=== PATIENT | male | born 1960 | race Caucasian/White ===

== ENCOUNTER 2022-01-22 16:44 | Outpatient (CLI) | payer MEDICAID | END 2022-01-22 16:45 | disposition left against medical advice (07) | LOC: EMS 16:44 | DX: E11.649 Type 2 diabetes mellitus with hypoglycemia without coma (principal) ==

== ENCOUNTER 2022-02-02 19:20 | Outpatient (CLI) | payer MEDICAID | END 2022-02-02 19:21 | disposition EMS.NT | LOC: EMS 19:20 | DX: E11.649 Type 2 diabetes mellitus with hypoglycemia without coma (principal); Z79.4 Long term (current) use of insulin ==

== ENCOUNTER 2022-02-06 18:48 | Outpatient (CLI) | payer MEDICAID | END 2022-02-06 18:49 | disposition critical access hospital (66) | LOC: EMS 18:48 | DX: M79.652 Pain in left thigh (principal); W11.XXXA Fall on and from ladder, initial encounter; Y92.009 Unspecified place in unspecified non-institutional (private) residence as the place of occurrence of the external cause | CPT/HCPCS: A0425; A0427 ==

== ENCOUNTER 2022-02-06 19:17 | Inpatient (IN) | payer MEDICAID ==
[2022-02-06] MEDS ORDERED: HYDROmorphone 1 MG/ML CARPUJECT IVP STA ×2 (19:41→22:09)
[2022-02-06 19:57] LABS: BASOPHILS # (AUTO) 0.1 10^3/uL (0.0-0.1); BASOPHILS % (AUTO) 1.3 %; EOSINOPHILS # (AUTO) 0.1 10^3/uL (0.0-0.7); EOSINOPHILS % (AUTO) 1.7 %; HCT - HEMATOCRIT 41.5 % (42.0-52.0); HGB - HEMOGLOBIN 13.9 g/dL (14.0-18.0); LYMPHOCYTES # (AUTO) 1.9 10^3/uL (1.5-3.5); LYMPHOCYTES % (AUTO) 23.9 %; MEAN CORPUSCULAR HEMOGLOBIN 31.4 pg (27.0-31.0); MEAN CORPUSCULAR HGB CONC 33.5 g/dL (32.0-36.0); MEAN CORPUSCULAR VOLUME 93.9 fL (80.0-94.0); MONOCYTES # (AUTO) 0.5 10^3/uL (0.0-1.0); MONOCYTES % (AUTO) 5.9 %; NEUTROPHILS # (AUTO) 5.3 10^3/uL (1.5-6.6); NEUTROPHILS % (AUTO) 66.9 %; PLT - PLATELET COUNT 270 10^3/uL (130-450); RED BLOOD COUNT 4.42 10^6/uL (4.70-6.10); RED CELL DISTRIBUTION WIDTH 13.6 % (12.0-15.0); WHITE BLOOD COUNT 7.8 x10^3/uL (4.8-10.8)
[2022-02-06 20:08] LABS: CALCIUM 9.4 mg/dL (8.5-10.3); CREATININE 0.9 mg/dL (0.6-1.2); POTASSIUM 4.3 mmol/L (3.5-5.0)
--- NOTE | 2022-02-06 20:57 | XRAY Report ---
PROCEDURE: Hip w/Pelvis 2-3V LT INDICATIONS: fall off ladder, L hip pain TECHNIQUE: AP pelvis with AP and lateral views of the left hip. COMPARISON: None. FINDINGS: Bones: There is deformity of the proximal left femur consistent with sequelae of a mildly displaced a nd angle related intertrochanteric fracture. Pelvic ring appears intact. No suspicious bony lesions. Soft tissues: The visualized bowel gas pattern is normal. No suspicious soft tissue calcifications. IMPRESSION: 1. Mildly displaced and angulated intertrochanteric fracture of the proximal left femur. Reviewed by: Connor Mejia MD on 02/06/2022 8:56 PM PDT Approved by: Connor Mejia MD on 02/06/2022 8:56 PM PDT Station ID: [id number]
--- NOTE | 2022-02-06 21:04 | ED Physician Documentation ---
History of Present Illness - Stated complaint Stated Complaint: FELL OFF LADDER - Chief complaint Chief Complaint: General - History obtained from History obtained from: Patient, EMS - History of Present Illness Timing: Today Pain level max: 9 Pain level now: 7 - Additonal information Additional information: Patient is a 61-year-old male, history of insulin dependent diabetes who presents to the emergency department after a fall off of a trailer tonight. He was on a ladder and fell about 5 feet onto the left hip. He states he was able to hobble on crutches, but pain increased with weightbearing. Patient was brought in by ambulance. No head, neck, back pain. No numbness or tingling. Worse with movement, better with rest. Is not on any blood thinners. Review of Systems Ten Systems: 10 systems reviewed and negative Constitutional: denies: Fever, Chills Throat: denies: Sore throat Cardiac: denies: Chest pain / pressure, Palpitations Respiratory: denies: Dyspnea, Cough GI: denies: Abdominal Pain, Vomiting, Diarrhea Skin: denies: Rash Musculoskeletal: denies: Neck pain, Back pain Neurologic: denies: Focal weakness, Numbness, Confused, Headache, Head injury, LOC PD PAST MEDICAL HISTORY - Past Medical History Past Medical History: Yes Endocrine/Autoimmune: Type 1 diabetes - Present Medications Home Medications: Ambulatory Orders Medication Instructions Recorded Confirmed Aspirin [[place] Aspirin] 81 mg PO DAILY 02/06/22 02/06/22 Insulin NPH Human [HumuLIN N] 15 unit SUBQ BID 02/06/22 02/06/22 Insulin Regular Human [Humulin R] 0 unit SUBQ ACHS 02/06/22 02/06/22 - Allergies Allergies/Adverse Reactions: Allergies Allergy/AdvReac Type Severity Reaction Status Date / Time No Known Drug Allergies Allergy Verified 02/06/22 19:29 - Living Situation Living Arrangement: reports: At home - Family History Family history: reports: Non contributory PD ED PE NORMAL - Vitals Vital signs reviewed: Yes - General General: Alert and oriented X 3, No acute distress - HEENT HEENT: Atraumatic, PERRL, EOMI, Moist mucous membranes, Pharynx benign - Neck Neck: Supple, no meningeal sign, No bony TTP, C-Spine cleared by NEXUS criteria - Cardiac Cardiac: RRR, Strong equal pulses - Respiratory Respiratory: No respiratory distress, Clear bilaterally - Abdomen Abdomen: Soft, Non tender, Non distended - Derm Derm: Warm and dry - Extremities Extremities: No deformity, Other (Pain with range of motion of the left hip. No gross deformity. No external rotation or shortening. Neurovascular intact. Small abrasion to the left hip.) - Neuro Neuro: Alert and oriented X 3, shooter's helper 2-12 intact, No motor deficit, No sensory deficit, Normal speech Eye Opening: Spontaneous Motor: Obeys Commands Verbal: Oriented GCS Score: 15 - Psych Psych: Normal mood, Normal affect Results - Vitals Vitals: Vital Signs - 24 hr 02/06/22 02/06/22 02/06/22 19:23 20:05 21:00 Temperature 37 C Heart Rate 80 78 75 Respiratory 18 14 16 Rate Blood Pressure 159/79 H 135/60 H 122/60 O2 Saturation 100 91 L 94 Oxygen O2 Source Room air - EKG (time done) 2145 Rate: Rate (enter#) (72) Rhythm: NSR [place]: Normal Intervals: Normal NE QRS: Normal Ischemia: Non specific changes - Labs Labs: Laboratory Tests 02/06/22 02/06/22 19:49 19:49 WBC 7.8 RBC 4.42 L Hgb 13.9 L Hct 41.5 L MCV 93.9 MCH 31.4 H MCHC 33.5 RDW 13.6 Plt Count 270 MPV 9.0 Neut # (Auto) 5.3 Lymph # (Auto) 1.9 [place] # (Auto) 0.5 Eos # (Auto) 0.1 Baso # (Auto) 0.1 Absolute Nucleated RBC 0.00 Nucleated RBC % 0.0 Sodium 133 L Potassium 4.3 Chloride 100 L Carbon Dioxide 26 Anion Gap 7.0 BUN 17 Creatinine 0.9 Estimated GFR (MDRD) 86 L Glucose 130 H Calcium 9.4 - Rads (name of study) X-ray left hip Radiology: Final report received, EMP read contemporaneously, See rad report (Mildly displaced intertrochanteric fracture) PD MEDICAL DECISION MAKING - ED course Complexity details: reviewed results, re-evaluated patient, considered differential, d/w patient, d/w senior information security consultant ED course: Patient is a 61-year-old male, history of diabetes who presents to the emergency department after a fall off of a ladder today. He has a fracture of the left hip. Discussed the case with Dr. Patricia, orthopedics, who recommends admission to the hospitalist service. He will consult in the morning. Discussed the case with the hospitalist as well. They accept for admission. This document was made in part using voice recognition software. While efforts are made to proofread this document, sound alike and grammatical errors may occur. Departure - Departure Disposition: 66 [facility] DC/Xfer Clinical Impression: IDDM (insulin dependent diabetes mellitus) Intertrochanteric fracture of left hip Qualifiers: Encounter type: initial encounter Fracture type: closed Fracture alignment: displaced Qualified Code(s): S72.142A - Displaced intertrochanteric fracture of left femur, initial encounter for closed fracture Condition: Good
[2022-02-06] MEDS ORDERED: SODIUM CHLORIDE 0.9% 1,000 ML IV STA (21:13)
--- NOTE | 2022-02-06 21:23 | HISTORY & PHYSICAL EXAMINATION ---
Chief Complaint - Chief Complaint Chief Complaint: Mecahnical Fall with left hip pain History of Present Illness - Admitted From Admitted From:: ER - History Obtained From History obtained from: Patient and ER physicain - History of Present Illness HPI Comment/Other: Patient is a 61-year-old male, history of insulin dependent diabetes who presents to the emergency department after a fall off of a trailer tonight. He was on a ladder and fell about 5 feet onto the left hip. He states he was able to hobble on crutches, but pain increased with weightbearing. Patient was brought in by ambulance. No head, neck, back pain. No numbness or tingling. Worse with movement, better with rest. Is not on any blood thinners. Patient denies any loss of consiousness, has hx of DM, no other active complaints. 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 All of the history done History - Past Medical History Endocrine/Autoimmune: reports: Type 1 diabetes - Family & Social History Living arrangement: At home Meds/Allgy - Home Medications Home Medications: Ambulatory Orders Medication Instructions Recorded Confirmed Aspirin [[place] Aspirin] 81 mg PO DAILY 02/06/22 02/06/22 Insulin NPH Human [HumuLIN N] 15 unit SUBQ BID 02/06/22 02/06/22 Insulin Regular Human [Humulin R] 0 unit SUBQ ACHS 02/06/22 02/06/22 - Allergies Allergies/Adverse Reactions: Allergies Allergy/AdvReac Type Severity Reaction Status Date / Time No Known Drug Allergies Allergy Verified 02/06/22 19:29 Review of Systems - Musculoskeletal Musculoskeletal: reports: Limited range of motion, Joint pain (Left hip pain) Prior Level of Functionality: Good ADL Exam - Vital Signs Vital Signs: Vital Signs x48h Temp Pulse Resp BP Pulse Ox 02/06/22 21:00 75 16 122/60 94 02/06/22 20:05 78 14 135/60 H 91 L 02/06/22 19:23 37 C 80 18 159/79 H 100 - Physical Exam General Appearance: positive: No acute distress Eyes Bilateral: positive: Normal inspection, PERRL Neck: positive: Nml inspection, No JVD Respiratory: positive: Chest non-tender, No respiratory distress Cardiovascular: positive: Regular rate & rhythm Abdomen: positive: Non-tender Skin: positive: Color nml Extremities: positive: Other (Extremities: No deformity, Other (Pain with range of motion of the left hip. No gross deformity. No external rotation or s hortening. Neurovascular intact. Small abrasion to the left hip.)) Neurologic/Psychiatric: positive: Oriented x3, CN's nml (2-12) Conclusion/Plan - Problem List (1) Intertrochanteric fracture of left hip Conclusion/Plan: Patient is a 61-year-old male, history of diabetes who presents to the emergency department after a fall off of a ladder today. He has a fracture of the left hip. Discussed the case with Dr. Patricia, orthopedics, who recommends admission to the hospitalist service. He will consult in the morning. Patient will be admitted to Med surg, EKG ordered, NPO past midnight, gentle iv hydration, pain meds, incentive spirometer Patient is at moderate risk for a moderate risk procedure and is medically optimized for his surgery will need PT post op. Qualifiers: Encounter type: initial encounter Fracture type: closed Fracture alignment: displaced Qualified Code(s): S72.142A - Displaced intertrochanteric fracture of left femur, initial encounter for closed fracture (2) IDDM (insulin dependent diabetes mellitus) Conclusion/Plan: Accuchekcs, hold insulin, regular sliding scale coverage, check lipids and tsh Lipitor 20 mg qhs check A1c - Lab Results Fish Bones: 02/06/22 19:49 02/06/22 19:49
[2022-02-06] MEDS ORDERED: SODIUM CHLORIDE FLUSH 0.9% 10 ML SYRINGE IVP PRN (21:33)
[2022-02-06] MEDS ORDERED: ONDANSETRON 4 MG/2 ML VIAL IVP PRN (21:33)
[2022-02-06] MEDS ORDERED: ATORVASTATIN 40 MG TABLET PO ONE (22:08)
[2022-02-06 22:09] LABS: B. PARAPERTUSSIS- RESP PCR PAN NOT DETECTED; B. PERTUSSIS- RESP PCR PANEL NOT DETECTED; C. PNEUMONIAE- RESP PCR PANEL NOT DETECTED; CORONAVIRUS 229E-RESP PCR NOT DETECTED; CORONAVIRUS HKU1-RESP PCR NOT DETECTED; CORONAVIRUS NL63-RESP PCR NOT DETECTED; CORONAVIRUS OC43-RESP PCR NOT DETECTED; HUMAN METAPNEUMOVIRUS NOT DETECTED; INFLUENZA A- RESP PCR PANEL NOT DETECTED; INFLUENZA B - RESP PCR PANEL NOT DETECTED; M. PNEUMONIAE- RESP PCR PANEL NOT DETECTED; PARAINFLUENZA VIRUS 1 NOT DETECTED; PARAINFLUENZA VIRUS 2 NOT DETECTED; PARAINFLUENZA VIRUS 3 NOT DETECTED; PARAINFLUENZA VIRUS 4 NOT DETECTED; RHINOVIRUS/ENTEROVIRUS NOT DETECTED; RSV- RESP PCR PANEL NOT DETECTED; SARS-CoV-2 -RESP PCR PANEL NOT DETECTED
[2022-02-06] MEDS: SODIUM CHLORIDE 0.9% 1,000 ML IV SCH (22:33)
--- NOTE | 2022-02-06 22:50 | ED Physician Documentation ---
ED Addendum - Addendum Addendum: 02/06/22 22:49 Dr. Patricia (ortho) returned phone call and will consult on patient.
--- NOTE | 2022-02-06 22:56 | XRAY Report ---
PROCEDURE: Chest 1 View X-Ray INDICATIONS: pre-op TECHNIQUE: One view of the chest was acquired. COMPARISON: None. FINDINGS: Surgical changes and devices: There are postsurgical changes in the mediastinum with multiple median sternotomy wires. Lungs and pleura: There is hyperinflation of the lungs with flattening of hemidiaphragms compatible COPD. No acute consolidation. No pleural effusions or pneumothorax. Mediastinum: Mediastinal contours appear normal. Heart size is normal. Bones and chest wall: No suspicious bony lesions. Overlying soft tissues appear unremarkable. IMPRESSION: 1. No definite acute cardiopulmonary disease. 2. Findings compatible with COPD. Reviewed by: Connor Mejia MD on 02/06/2022 10:55 PM PDT Approved by: Connor Mejia MD on 02/06/2022 10:55 PM PDT Station ID: [id number]
[2022-02-06] MEDS: MORPHINE 2 MG/ML CARPUJECT IVP PRN (23:07)
[2022-02-07] MEDS: ACETAMINOPHEN 325 MG TABLET PO PRN ×3 (00:03→23:43)
[2022-02-07] MEDS: SODIUM CHLORIDE FLUSH 0.9% 10 ML SYRINGE IVP SCH ×4 (00:05→22:41)
[2022-02-07] MEDS: MORPHINE 2 MG/ML CARPUJECT IVP PRN ×4 (01:08→21:52)
[2022-02-07] MEDS: oxyCODONE 5 MG TABLET PO PRN ×3 (03:28→23:44)
[2022-02-07 06:36] LABS: CHOL/HDL RATIO 2.7 (<5.0); CHOLESTEROL 164 mg/dL; HDL CHOLESTEROL 61 mg/dL; LDL CHOLESTEROL,CALCULATED 90 mg/dL; LDL/HDL RATIO 1.5 (<3.6); TRIGLYCERIDES 65 mg/dL; VLDL CHOLESTEROL 13 mg/dL
[2022-02-07] MEDS: SODIUM CHLORIDE 0.9% 1,000 ML IV SCH ×3 (07:09→20:57)
--- NOTE | 2022-02-07 07:56 | PROVIDER PROGRESS NOTE ---
Assessment/Plan - Problem List (1) Intertrochanteric fracture of left hip Qualifiers: Encounter type: subsequent encounter Fracture type: closed Fracture alignment: displaced Qualified Code(s): S72.142A - Displaced intertrochanteric fracture of left femur, initial encounter for closed fracture Assessment/Plan: He was seen by Ortho this am and hip surgery could be done this afternoon Continue npo for surgey and iv fluids Continue iv narcotic meds for pain prn (2) Preoperative clearance Assessment/Plan: The revised cardiac risk index for preoperative risk was done for this patient. He has a Class III risk (for Hx of DM and CAD), which gives him a 10.1% 30-day risk of , AZ or cardiac arrest. This was discussed with the patient. This was discussed with the orthopedic surgeon and staff An echocardiogram has been ordered for preop evaluation given the abnormal EKG (3) Abnormal EKG Assessment/Plan: Inferior Q waves are seen on his EKG, therefore I asked about his cardiac Hx and whether there was an AZ. He said that "they thought he had an AZ, but after the CABG said no" An Echo was done today pre-op, and no inferior wall motion abnormality was seen. This suggests that he probably did have an AZ but that the inferior wall was reperfused with blood flow restored via a CABG. He has no sx of chest pain since the CABG. Therefore the likelihood that he still has well perfused myocardium is good. (4) IDDM (insulin dependent diabetes mellitus) Assessment/Plan: His Insulin and fingerstick checks and ss coverage have been ordered as well as a carb-controlled diet to resume after the OR. - Current Meds Current Meds: Current Medications Generic Name Dose Route Start Last Admin Trade Name Freq PRN Reason Stop Dose Admin Acetaminophen 650 mg 02/06/22 21:33 02/07/22 00:03 Acetaminophen 325 Mg Tablet PO 650 mg Q4HR PRN Administration Pain 1 to 4, or Fever Sodium Chloride 1,000 mls @ 100 mls/hr 02/06/22 22:00 02/07/22 07:09 Normal Saline 0.9% IV 100 mls/hr .Q10H JENNIFER Administration Morphine Sulfate 2 mg 02/06/22 21:33 02/07/22 01:08 Morphine 2 Mg/Ml Carpuject IVP 2 mg Q2HR PRN Administration Pain 8 to 10 Oxycodone HCl 5 mg 02/06/22 21:33 02/07/22 03:28 Oxycodone 5 Mg Tablet PO 5 mg Q4HR PRN Administration Pain 5 to 7 Sodium Chloride 10 ml 02/07/22 01:00 02/07/22 00:05 Sodium Chloride Flush 0.9% 10 Ml Syringe IVP Not Given 0100,0900,1700 JENNIFER - Lab Result Fish Bone Diagrams: 02/06/22 19:49 02/07/22 06:05 - EKG Results EKG Comparison: Old EKG unavailable EKG Findings: Normal sinus rhythm, deep inferior Q waves consistent with old AZ. - Additional Planning My Orders: My Active Orders 02/07/22 07:51 PT WITH INR [COAG] Urgent 02/07/22 07:52 Echo Transthoracic Complete [ECHO] Stat CMP [COMPREHENSIVE METABOLIC PANEL] [CHEM] Urgent Subjective - Subjective Patient Reports: Pain (in hip) Objective Vital Signs: Vital Signs - 24 hr 02/06/22 02/06/22 02/06/22 19:23 20:05 21:00 Temperature 37 C Heart Rate 80 78 75 Heart Rate [ Brachial] Respiratory 18 14 16 Rate Blood Pressure 159/79 H 135/60 H 122/60 Blood Pressure [Right Brachial artery] O2 Saturation 100 91 L 94 02/06/22 23:45 Temperature 37 C Heart Rate Heart Rate [ 78 Brachial] Respiratory 16 Rate Blood Pressure Blood Pressure 121/52 L [Right Brachial artery] O2 Saturation 92 Oxygen O2 Source Room air I&O (Last 24 Hrs): Intake and Output Totals x24h 02/05/22 02/06/22 02/07/22 23:59 23:59 23:59 Intake Total 552.5 1060 Balance 552.5 1060 General: Alert, Oriented x3 HEENT: EOMI, Mucous membr. moist/pink Neck: Supple, No JVD Neuro: Alert Cardiovascular: Regular rate, No murmurs Respiratory: No respiratory distress, Breath sounds nml Abdomen: Normal bowel sounds, Soft Extremities: No clubbing, No edema - Results Results: Laboratory Results WBC 7.8 x10^3/uL (4.8-10.8) 02/06/22 19:49 RBC 4.42 10^6/uL (4.70-6.10) L 02/06/22 19:49 Hgb 13.9 g/dL (14.0-18.0) L 02/06/22 19:49 Hct 41.5 % (42.0-52.0) L 02/06/22 19:49 MCV 93.9 fL (80.0-94.0) 02/06/22 19:49 MCH 31.4 pg (27.0-31.0) H 02/06/22 19:49 MCHC 33.5 g/dL (32.0-36.0) 02/06/22 19:49 RDW 13.6 % (12.0-15.0) 02/06/22 19:49 Plt Count 270 10^3/uL (130-450) 02/06/22 19:49 MPV 9.0 fL (7.4-11.4) 02/06/22 19:49 Neut # (Auto) 5.3 10^3/uL (1.5-6.6) 02/06/22 19:49 Lymph # (Auto) 1.9 10^3/uL (1.5-3.5) 02/06/22 19:49 [place] # (Auto) 0.5 10^3/uL (0.0-1.0) 02/06/22 19:49 Eos # (Auto) 0.1 10^3/uL (0.0-0.7) 02/06/22 19:49 Baso # (Auto) 0.1 10^3/uL (0.0-0.1) 02/06/22 19:49 Absolute Nucleated RBC 0.00 x10^3/uL 02/06/22 19:49 Nucleated RBC % 0.0 /100WBC 02/06/22 19:49 Sodium 133 mmol/L (135-145) L 02/06/22 19:49 Potassium 4.3 mmol/L (3.5-5.0) 02/06/22 19:49 Chloride 100 mmol/L (101-111) L 02/06/22 19:49 Carbon Dioxide 26 mmol/L (21-32) 02/06/22 19:49 Anion Gap 7.0 (6-13) 02/06/22 19:49 BUN 17 mg/dL (6-20) 02/06/22 19:49 Creatinine 0.9 mg/dL (0.6-1.2) 02/06/22 19:49 Estimated GFR (MDRD) 86 (>89) L 02/06/22 19:49 Glucose 130 mg/dL (70-100) H 02/06/22 19:49 Calcium 9.4 mg/dL (8.5-10.3) 02/06/22 19:49 Triglycerides 65 mg/dL (-149) 02/07/22 06:05 Cholesterol 164 mg/dL (-199) 02/07/22 06:05 LDL Cholesterol, Calc 90 mg/dL (-129) 02/07/22 06:05 VLDL Cholesterol 13 mg/dL 02/07/22 06:05 HDL Cholesterol 61 mg/dL (60-) 02/07/22 06:05 LDL/HDL Ratio 1.5 (<3.6) 02/07/22 06:05 Cholesterol/HDL Ratio 2.7 (<5.0) 02/07/22 06:05 TSH 3.57 uIU/mL (0.34-5.60) 02/07/22 06:05 Nasal Adenovirus (PCR) NOT DETECTED 02/06/22 21:11 Nasal B. parapertussis DNA (PCR) NOT DETECTED 02/06/22 21:11 Nasal Coronavir 229E PCR NOT DETECTED 02/06/22 21:11 Nasal Coronavir HKU1 PCR NOT DETECTED 02/06/22 21:11 Nasal Coronavir NL63 PCR NOT DETECTED 02/06/22 21:11 Nasal Coronavir OC43 PCR NOT DETECTED 02/06/22 21:11 Nasal Enterovir/Rhinovir PCR NOT DETECTED 02/06/22 21:11 Nasal Influenza B PCR NOT DETECTED 02/06/22 21:11 Nasal Influenza A PCR NOT DETECTED 02/06/22 21:11 Nasal Parainfluen 1 PCR NOT DETECTED 02/06/22 21:11 Nasal Parainfluen 2 PCR NOT DETECTED 02/06/22 21:11 Nasal Parainfluen 3 PCR NOT DETECTED 02/06/22 21:11 Nasal Parainfluen 4 PCR NOT DETECTED 02/06/22 21:11 Nasal RSV (PCR) NOT DETECTED 02/06/22 21:11 Nasal B.pertussis DNA PCR NOT DETECTED 02/06/22 21:11 Nasal C.pneumoniae (PCR) NOT DETECTED 02/06/22 21:11 Jabari Human Metapneumo PCR NOT DETECTED 02/06/22 21:11 Nasal M.pneumoniae (PCR) NOT DETECTED 02/06/22 21:11 Nasal SARS-CoV-2 (PCR) NOT DETECTED 02/06/22 21:11
[2022-02-07 08:25] LABS: ALBUMIN 3.5 g/dL (3.2-5.5); ALBUMIN/GLOBULIN RATIO 1.4 (1.0-2.2); CALCIUM 8.5 mg/dL (8.5-10.3); CREATININE 0.8 mg/dL (0.6-1.2); POTASSIUM 4.3 mmol/L (3.5-5.0)
[2022-02-07] MEDS: HYDROcod/ACETAM 5/325 MG TABLET PO PRN ×2 (09:24→20:58)
--- NOTE | 2022-02-07 09:48 | HISTORY & PHYSICAL EXAMINATION ---
HPI - History Obtained From History obtained from: Patient Exam limitations: No limitations - History of Present Illness Pain/Problem Location Description: Left hip area HPI Comment/Other: This is a 61-year-old gentleman who recently moved from [place] to [facility] about 2 months ago. He came in because of some stress and also because he enjoys sailing and scuba diving.. He was up on a ladder about 5 to 6 feet when he fell trying to pull down rubber taping that was used to secure the edge of ezequiel. He landed on his left hip. He had pain about the left hip and was very difficult to bear weight on left leg. He denies chest pain, shortness of breath, dizziness, syncope or loss of consciousness associated with the fall. He has been normally active, no limitations to walking and no previous problems with his left hip. He does have a history of medical comorbidities. These include chronic cigarette smoking, insulin-dependent diabetes mellitus, coronary artery disease with previous myocardial infarction and coronary artery bypass grafting approximately 1 year ago in [place], [place]. He denies chest pain or shortness of breath associated with the fall and none now. His pain is controlled clysed to the left hip and upper thigh. As long he does not move his left leg in bed, he is relatively comfortable. PMH/PSH - Past Medical History Cardiovascular: positive: High cholesterol, [place] Respiratory: positive: None Neuro: positive: None Endocrine/Autoimmune: positive: Type 1 diabetes GI: positive: None : positive: None HEENT: positive: Other Psych: positive: None Musculoskeletal: positive: None Derm: positive: None MRSA Hx?: No Other Past Medical History: Broken nose - Past Surgical History General: positive: Appendectomy Cardiovascular: positive: Other HEENT: positive: Rhinoplasty Social & Family Hx - Social History Does the pt smoke?: No Smoking Status: Current every day smoker Does the pt drink ETOH?: No Does the pt have substance abuse?: No - POLST Patient has POLST: No Meds/Allgy - Home Medications Home Medications: Ambulatory Orders Medication Instructions Recorded Confirmed Aspirin [[place] Aspirin] 81 mg PO DAILY 02/06/22 02/06/22 Insulin NPH Human [HumuLIN N] 15 unit SUBQ BID 02/06/22 02/06/22 Insulin Regular Human [Humulin R] 0 unit SUBQ ACHS 02/06/22 02/06/22 - Allergies Allergies/Adverse Reactions: Allergies Allergy/AdvReac Type Severity Reaction Status Date / Time No Known Drug Allergies Allergy Verified 02/06/22 19:29 Exam - Vital Signs Vital Signs: Vital Signs x48h Temp Pulse Resp BP Pulse Ox 02/07/22 07:48 36.7 C 65 16 127/55 L 92 - Physical Exam General Appearance: positive: No acute distress, Alert Neck: positive: Nml inspection Respiratory: positive: Chest non-tender, No respiratory distress Cardiovascular: positive: Regular rate & rhythm Peripheral Pulses: positive: 1+ Skin: positive: Color nml Neurologic/Psychiatric: positive: Oriented x3, Motor nml, Sensation nml Comments/Other: Examination of all 4 extremities. Left leg is shortened and externally rotated. He has marked pain with any movement of left hip. There is no sign of hematoma. Skin is intact. Neurovascular is intact left leg Results - Lab Results Fish Bones: 02/06/22 19:49 02/07/22 06:05 Other Lab Results: Lab Results x24hrs 02/07/22 02/07/22 02/07/22 Range/Units 08:10 06:05 06:05 WBC (4.8-10.8) x10^3/uL RBC (4.70-6.10) 10^6/uL Hgb (14.0-18.0) g/dL Hct (42.0-52.0) % MCV (80.0-94.0) fL MCH (27.0-31.0) pg MCHC (32.0-36.0) g/dL RDW (12.0-15.0) % Plt Count (130-450) 10^3/uL MPV (7.4-11.4) fL Neut # (Auto) (1.5-6.6) 10^3/uL Lymph # (Auto) (1.5-3.5) 10^3/uL [place] # (Auto) (0.0-1.0) 10^3/uL Eos # (Auto) (0.0-0.7) 10^3/uL Baso # (Auto) (0.0-0.1) 10^3/uL Absolute Nucleated RBC x10^3/uL Nucleated RBC % /100WBC PT 11.0 (9.9-12.6) secs INR 1.0 (0.8-1.2) Sodium 132 L (135-145) mmol/L Potassium 4.3 (3.5-5.0) mmol/L Chloride 101 (101-111) mmol/L Carbon Dioxide 25 (21-32) mmol/L Anion Gap 6.0 (6-13) BUN 14 (6-20) mg/dL Creatinine 0.8 (0.6-1.2) mg/dL Estimated GFR (MDRD) 98 (>89) Glucose 310 H (70-100) mg/dL Calcium 8.5 (8.5-10.3) mg/dL Total Bilirubin 1.0 (0.2-1.0) mg/dL AST 16 (10-42) IU/L ALT 14 (10-60) IU/L Alkaline Phosphatase 66 (42-121) IU/L Total Protein 6.0 L (6.7-8.2) g/dL Albumin 3.5 (3.2-5.5) g/dL Globulin 2.5 (2.1-4.2) g/dL Albumin/Globulin Ratio 1.4 (1.0-2.2) Triglycerides ( - 149) mg/dL Cholesterol ( - 199) mg/dL LDL Cholesterol, Calc ( - 129) mg/dL VLDL Cholesterol mg/dL HDL Cholesterol (60 - ) mg/dL LDL/HDL Ratio (<3.6) Cholesterol/HDL Ratio (<5.0) TSH 3.57 (0.34-5.60) uIU/mL Nasal Adenovirus (PCR) Nasal B. parapertussis DNA (PCR) Nasal Coronavir 229E PCR Nasal Coronavir HKU1 PCR Nasal Coronavir NL63 PCR Nasal Coronavir OC43 PCR Nasal Enterovir/Rhinovir PCR Nasal Influenza B PCR Nasal Influenza A PCR Nasal Parainfluen 1 PCR Nasal Parainfluen 2 PCR Nasal Parainfluen 3 PCR Nasal Parainfluen 4 PCR Nasal RSV (PCR) Nasal B.pertussis DNA PCR Nasal C.pneumoniae (PCR) Jabari Human Metapneumo PCR Nasal M.pneumoniae (PCR) Nasal SARS-CoV-2 (PCR) 02/07/22 02/06/22 02/06/22 Range/Units 06:05 21:11 19:49 WBC (4.8-10.8) x10^3/uL RBC (4.70-6.10) 10^6/uL Hgb (14.0-18.0) g/dL Hct (42.0-52.0) % MCV (80.0-94.0) fL MCH (27.0-31.0) pg MCHC (32.0-36.0) g/dL RDW (12.0-15.0) % Plt Count (130-450) 10^3/uL MPV (7.4-11.4) fL Neut # (Auto) (1.5-6.6) 10^3/uL Lymph # (Auto) (1.5-3.5) 10^3/uL [place] # (Auto) (0.0-1.0) 10^3/uL Eos # (Auto) (0.0-0.7) 10^3/uL Baso # (Auto) (0.0-0.1) 10^3/uL Absolute Nucleated RBC x10^3/uL Nucleated RBC % /100WBC PT (9.9-12.6) secs INR (0.8-1.2) Sodium 133 L (135-145) mmol/L Potassium 4.3 (3.5-5.0) mmol/L Chloride 100 L (101-111) mmol/L Carbon Dioxide 26 (21-32) mmol/L Anion Gap 7.0 (6-13) BUN 17 (6-20) mg/dL Creatinine 0.9 (0.6-1.2) mg/dL Estimated GFR (MDRD) 86 L (>89) Glucose 130 H (70-100) mg/dL Calcium 9.4 (8.5-10.3) mg/dL Total Bilirubin (0.2-1.0) mg/dL AST (10-42) IU/L ALT (10-60) IU/L Alkaline Phosphatase (42-121) IU/L Total Protein (6.7-8.2) g/dL Albumin (3.2-5.5) g/dL Globulin (2.1-4.2) g/dL Albumin/Globulin Ratio (1.0-2.2) Triglycerides 65 ( - 149) mg/dL Cholesterol 164 ( - 199) mg/dL LDL Cholesterol, Calc 90 ( - 129) mg/dL VLDL Cholesterol 13 mg/dL HDL Cholesterol 61 (60 - ) mg/dL LDL/HDL Ratio 1.5 (<3.6) Cholesterol/HDL Ratio 2.7 (<5.0) TSH (0.34-5.60) uIU/mL Nasal Adenovirus (PCR) NOT DETECTED Nasal B. parapertussis DNA (PCR) NOT DETECTED Nasal Coronavir 229E PCR NOT DETECTED Nasal Coronavir HKU1 PCR NOT DETECTED Nasal Coronavir NL63 PCR NOT DETECTED Nasal Coronavir OC43 PCR NOT DETECTED Nasal Enterovir/Rhinovir PCR NOT DETECTED Nasal Influenza B PCR NOT DETECTED Nasal Influenza A PCR NOT DETECTED Nasal Parainfluen 1 PCR NOT DETECTED Nasal Parainfluen 2 PCR NOT DETECTED Nasal Parainfluen 3 PCR NOT DETECTED Nasal Parainfluen 4 PCR NOT DETECTED Nasal RSV (PCR) NOT DETECTED Nasal B.pertussis DNA PCR NOT DETECTED Nasal C.pneumoniae (PCR) NOT DETECTED Jabari Human Metapneumo PCR NOT DETECTED Nasal M.pneumoniae (PCR) NOT DETECTED Nasal SARS-CoV-2 (PCR) NOT DETECTED 02/06/22 Range/Units 19:49 WBC 7.8 (4.8-10.8) x10^3/uL RBC 4.42 L (4.70-6.10) 10^6/uL Hgb 13.9 L (14.0-18.0) g/dL Hct 41.5 L (42.0-52.0) % MCV 93.9 (80.0-94.0) fL MCH 31.4 H (27.0-31.0) pg MCHC 33.5 (32.0-36.0) g/dL RDW 13.6 (12.0-15.0) % Plt Count 270 (130-450) 10^3/uL MPV 9.0 (7.4-11.4) fL Neut # (Auto) 5.3 (1.5-6.6) 10^3/uL Lymph # (Auto) 1.9 (1.5-3.5) 10^3/uL [place] # (Auto) 0.5 (0.0-1.0) 10^3/uL Eos # (Auto) 0.1 (0.0-0.7) 10^3/uL Baso # (Auto) 0.1 (0.0-0.1) 10^3/uL Absolute Nucleated RBC 0.00 x10^3/uL Nucleated RBC % 0.0 /100WBC PT (9.9-12.6) secs INR (0.8-1.2) Sodium (135-145) mmol/L Potassium (3.5-5.0) mmol/L Chloride (101-111) mmol/L Carbon Dioxide (21-32) mmol/L Anion Gap (6-13) BUN (6-20) mg/dL Creatinine (0.6-1.2) mg/dL Estimated GFR (MDRD) (>89) Glucose (70-100) mg/dL Calcium (8.5-10.3) mg/dL Total Bilirubin (0.2-1.0) mg/dL AST (10-42) IU/L ALT (10-60) IU/L Alkaline Phosphatase (42-121) IU/L Total Protein (6.7-8.2) g/dL Albumin (3.2-5.5) g/dL Globulin (2.1-4.2) g/dL Albumin/Globulin Ratio (1.0-2.2) Triglycerides ( - 149) mg/dL Cholesterol ( - 199) mg/dL LDL Cholesterol, Calc ( - 129) mg/dL VLDL Cholesterol mg/dL HDL Cholesterol (60 - ) mg/dL LDL/HDL Ratio (<3.6) Cholesterol/HDL Ratio (<5.0) TSH (0.34-5.60) uIU/mL Nasal Adenovirus (PCR) Nasal B. parapertussis DNA (PCR) Nasal Coronavir 229E PCR Nasal Coronavir HKU1 PCR Nasal Coronavir NL63 PCR Nasal Coronavir OC43 PCR Nasal Enterovir/Rhinovir PCR Nasal Influenza B PCR Nasal Influenza A PCR Nasal Parainfluen 1 PCR Nasal Parainfluen 2 PCR Nasal Parainfluen 3 PCR Nasal Parainfluen 4 PCR Nasal RSV (PCR) Nasal B.pertussis DNA PCR Nasal C.pneumoniae (PCR) Jabari Human Metapneumo PCR Nasal M.pneumoniae (PCR) Nasal SARS-CoV-2 (PCR) - Diagnostic Imaging Results Diagnostic Imaging Results: negative: Read independently (There is a displaced basilar femoral neck fracture left hip) Impression/Plan - Problem List Problem List: 1. Displaced basilar femoral neck fracture left hip 2. Comorbidities including chronic smoking, coronary artery disease with previous coronary artery bypass graft, insulin-dependent diabetes mellitus. The risk, goals and likelihood of achieving goals, alternatives to surgery and their consequences, disability and occasionally were discussed with the patient. The plan is an open reduction internal fixation of the displaced basilar femoral neck fracture of the left hip with doug and screws. His comorbidities do place him at risk for potential complications including adverse reaction to medication or anesthesia, myocardial infarction, cerebrovascular accident and pulmonary embolus. Other general complications include bleeding or infection. Specific complications of the procedure include loss of fixation due to implant failure, nonunion, revision surgery, shortness of leg, weakness of leg, injury to adjacent structures such as nerve or artery, need for implant removal. The patient is agreement to the surgery and has signed informed consent. He has been medically evaluated by her hospitalist. Tentatively, the surgery is scheduled for this afternoon pending further evaluation. Patient is agreement, has signed informed consent.
--- NOTE | 2022-02-07 11:40 | PHARMACY PROGRESS NOTE ---
- Best Possible Medication History Admit Date and Time: 02/06/222132 Processed by: Pharmacy Medication History completed: Yes Patient Interview: Completed Secondary Source(s): Pharmacy records (PT was using [facility] in [place] on [address] in [place]. Pt also has 4 bottles of escitalopram 5mg at home and last flower picker was Dec 18, 2021, but pt states he hasn't been taking that bc it makes him drowsy throughout the day. Therefore, I did not put it on his medlist. Pt wants to use [facility] near [place].) As the person ultimately responsible for medication therapy, providers are able to order a medication from an existing home medication list in [facility] via the "Reconcile Routine" prior to Confirmation of that medication by clinical support associate. Such practice is discouraged except when the physician, in their clinical judgment, deems that a medical need exists for a medication without regard to previous use.
[2022-02-07 13:05] LABS: ESTIMATED AVERAGE GLUCOSE 171 mg/dL (70-100); HEMOGLOBIN A1c% 7.6 % (4.27-6.07)
[2022-02-07] MEDS ORDERED: MORPHINE 2 MG/ML CARPUJECT IVP PRN (13:51)
[2022-02-07] MEDS ORDERED: ONDANSETRON 4 MG/2 ML VIAL IVP PRN ×2 (13:51→16:15)
[2022-02-07] MEDS ORDERED: ATROPINE ABBOJECT 1 MG/10 ML SYRINGE IVP PRN (13:51)
[2022-02-07] MEDS ORDERED: NALOXONE 0.4 MG/ML VIAL IVP PRN (13:51)
[2022-02-07] MEDS ORDERED: METOCLOPRAMIDE 10 MG/2 ML VIAL IVP PRN (13:51)
[2022-02-07] MEDS ORDERED: fentaNYL 100 MCG/2 ML VIAL IVP PRN ×2 (13:51→16:15)
[2022-02-07] MEDS ORDERED: HYDROmorphone 0.5 MG/0.5 ML SYRINGE IVP PRN (13:51)
[2022-02-07] MEDS ORDERED: ePHEDrine 50 MG/ML VIAL IVP PRN (13:51)
--- NOTE | 2022-02-07 13:59 | ANESTHESIA ---
Pre-Anesthesia VS, & Labs - Diagnosis hip fracture left - Procedure Left hip hip nailing Vital Signs: Temp Pulse Resp BP Pulse Ox O2 Flow Rate 36.7 C 65 16 127/55 L 92 02/07/22 07:48 02/07/22 07:48 02/07/22 07:48 02/07/22 07:48 02/07/22 07:48 Height: 5 ft 11 in Weight (kg): 72.575 kg Body Mass Index: 22.3 BMI Classification: Normal - NPO >8 hours - Lab Results Current Lab Results: Laboratory Tests 02/07/22 08:10: PT 11.0, INR 1.0 02/07/22 06:05: Sodium 132 L, Potassium 4.3, Chloride 101, Carbon Dioxide 25, Anion Gap 6.0, BUN 14, Creatinine 0.8, Estimated GFR (MDRD) 98, Glucose 310 H, Calcium 8.5, Total Bilirubin 1.0, AST 16, ALT 14, Alkaline Phosphatase 66, Total Protein 6.0 L, Albumin 3.5, Globulin 2.5, Albumin/Globulin Ratio 1.4 02/07/22 06:05: TSH 3.57 02/07/22 06:05: Triglycerides 65, Cholesterol 164, LDL Cholesterol, Calc 90, VLDL Cholesterol 13, HDL Cholesterol 61, LDL/HDL Ratio 1.5, Cholesterol/HDL Ratio 2.7 02/06/22 19:49: Sodium 133 L, Potassium 4.3, Chloride 100 L, Carbon Dioxide 26, Anion Gap 7.0, BUN 17, Creatinine 0.9, Estimated GFR (MDRD) 86 L, Glucose 130 H, Calcium 9.4 02/06/22 19:49: WBC 7.8, RBC 4.42 L, Hgb 13.9 L, Hct 41.5 L, MCV 93.9, MCH 31.4 H, MCHC 33.5, RDW 13.6, Plt Count 270, MPV 9.0, Neut # (Auto) 5.3, Lymph # (Auto) 1.9, [place] # (Auto) 0.5, Eos # (Auto) 0.1, Baso # (Auto) 0.1, Absolute Nucleated RBC 0.00, Nucleated RBC % 0.0 Fish Bones: 02/06/22 19:49 02/07/22 06:05 Home Medications and Allergies Home Medications: Ambulatory Orders Aspirin [[place] Aspirin] 81 mg PO DAILY 02/06/22 Insulin NPH Human [HumuLIN N] 15 unit SUBQ BID 02/06/22 Insulin Regular Human [Humulin R] 0 unit SUBQ ACHS 02/06/22 Metoprolol Succinate [Toprol Xl] 25 mg PO DAILY 02/07/22 Rosuvastatin Calcium [Crestor] 20 mg PO HS 02/07/22 Active Medications Acetaminophen (Acetaminophen 325 Mg Tablet) 650 mg PO Q4HR PRN PRN Reason: Pain 1 to 4, or Fever Last Admin: 02/07/22 00:03 Dose: 650 mg Hydrocodone Bitart/Acetaminophen (Hydrocod/Acetam 5/325 Mg Tablet) 1 tab PO Q4HR PRN PRN Reason: Pain 5 to 7 Last Admin: 02/07/22 09:24 Dose: 1 tab Aspirin (Aspirin Ec 81 Mg Tablet) 81 mg PO DAILY [facility] Sodium Chloride (Normal Saline 0.9%) 1,000 mls @ 100 mls/hr IV .Q10H [facility] Last Admin: 02/07/22 07:09 Dose: 100 mls/hr Morphine Sulfate (Morphine 2 Mg/Ml Carpuject) 2 mg IVP Q2HR PRN PRN Reason: Pain 8 to 10 Last Admin: 02/07/22 10:01 Dose: 2 mg Ondansetron HCl (Ondansetron 4 Mg/2 Ml Vial) 4 mg IVP Q6HR PRN PRN Reason: Nausea / Vomiting Oxycodone HCl (Oxycodone 5 Mg Tablet) 5 mg PO Q4HR PRN PRN Reason: Pain 5 to 7 Last Admin: 02/07/22 03:28 Dose: 5 mg Sodium Chloride (Sodium Chloride Flush 0.9% 10 Ml Syringe) 10 ml IVP PRN PRN PRN Reason: NEEDED PER PROVIDER ORDERS Sodium Chloride (Sodium Chloride Flush 0.9% 10 Ml Syringe) 10 ml IVP 0100,0900,1700 [facility] Last Admin: 02/07/22 08:54 Dose: Not Given Zolpidem Tartrate (Zolpidem 5 Mg Tablet) 5 mg PO QPM PRN PRN Reason: Insomnia Aspirin [[place] Aspirin] 81 mg PO DAILY 02/06/22 Insulin NPH Human [HumuLIN N] 15 unit SUBQ BID 02/06/22 Insulin Regular Human [Humulin R] 0 unit SUBQ ACHS 02/06/22 Metoprolol Succinate [Toprol Xl] 25 mg PO DAILY 02/07/22 Rosuvastatin Calcium [Crestor] 20 mg PO HS 02/07/22 Allergies/Adverse Reactions: Allergies Allergy/AdvReac Type Severity Reaction Status Date / Time No Known Drug Allergies Allergy Verified 02/06/22 19:29 Anes History & Medical History - Medical History Cardiovascular: reports: High cholesterol, [place] Pulmonary: reports: None Gastrointestinal: reports: None Urinary: reports: None Neuro: reports: None Musculoskeletal: reports: None Endocrine/Autoimmune: reports: Type 1 diabetes Blood Disorders: reports: None Skin: reports: None Smoking Status: Current every day smoker History of Cancer?: No Other Past Medical History: Broken nose - Surgical History General: reports: Appendectomy Eyes Ears Nose Throat (EENT): reports: Rhinoplasty Cardiothoracic: reports: Other Exam General: Alert, Oriented x3 Dental: WNL Neck Mobility: Normal Mallampati classification: II Thyromental Distance: 4-6 cm Respiratory: Lungs clear Cardiovascular: Regular rate Plan Anesthesia Type: Spinal, Fascia Iliaca Block Consent for Procedure(s) Verified and Reviewed: Yes Code Status: Attempt Resuscitation ASA classification: 3-Severe systemic disease Is this case an emergency?: No
[2022-02-07] MEDS ORDERED: LACTATED RINGERS 1,000 ML IV SCH (14:00)
[2022-02-07] MEDS ORDERED: KETAMINE 500 MG/10 ML VIAL ONE (14:22)
[2022-02-07] MEDS ORDERED: LIDOCAINE-MPF 2% 5 ML VIAL ONE (14:46)
[2022-02-07] MEDS ORDERED: fentaNYL 100 MCG/2 ML VIAL ONE (14:57)
[2022-02-07] MEDS ORDERED: TRANEXAMIC ACID 1,000 MG/10 ML VIAL ONE (15:08)
[2022-02-07] MEDS ORDERED: ceFAZolin 1 GM VIAL ONE (15:09)
[2022-02-07] MEDS ORDERED: PROPOFOL 200 MG/20 ML VIAL IVP ONE (15:45)
[2022-02-07] MEDS ORDERED: oxyCODONE 5 MG TABLET PO PRN (16:15)
[2022-02-07] MEDS ORDERED: SODIUM CHLORIDE FLUSH 0.9% 10 ML SYRINGE IVP PRN (16:15)
[2022-02-07] MEDS ORDERED: ACETAMINOPHEN 325 MG TABLET PO PRN (16:15)
[2022-02-07] MEDS ORDERED: BUPIVACAINE 0.5% PF 30 ML VIAL ONE (16:16)
--- NOTE | 2022-02-07 16:16 | OPERATIVE REPORT ---
Operative Report - General Admit Date: 02/06/22 Procedure Date: 02/07/22 Planned Procedure: Open reduction internal fixation basilar femoral neck fracture left hip Pre-Op Diagnosis: Displaced basilar femoral neck fracture left hip Procedure Performed: Open reduction internal fixation basilar femoral neck fracture left hip using [employer] 11.5 mm diameter, short locked InterTAN nail Post Op Diagnosis: Same as preoperative diagnosis - Procedure Note Primary Surgeon: Sergey Patricia MD Secondary Surgeon: Nazia TOMLINSON Anesthesia Technique: Spinal Estimated Blood Loss (mL): 25 Indications: This is a 61-year-old gentleman fell from a ladder yesterday evening and was admitted to the hospitalist service for left hip fracture and associated comorbidities. I saw the patient in consultation this morning. He has had no previous problems with his left hip prior to the fall. His only complaint was pain about the left hip. He had shortening and external rotation deformity left leg and pain with passive motion of left hip. His x-rays showed a displaced basilar femoral neck fracture. The fracture was quite vertical and actually began in the midportion of the neck and extended to the base. His comorbidities include chronic smoking, coronary artery disease and insulin-dependent diabetes mellitus. Patient was agreement to surgery and signed informed consent. He was seen by her hospitalist who felt that there were no contraindications to surgery. Findings: Displaced basilar femoral neck fracture but actually the fracture seem to start in the mid cervical region and since it was so vertical, it extended into the base of the neck. Complications: None - Other Other Information/Narrative: After satisfactory spinal anesthesia was achieved, the patient was transferred to the [place] fracture table in the supine position. Boot traction was applied to the left foot and well-leg arellano to the nonoperative right leg. Traction was applied to the left leg through the boot with the patella facing superiorly and the hip in a neutral position with regard to abduction and adduction and hip flexion/extension. The C-arm was used to assess the reduction and showed excellent alignment on both AP and lateral views. The left hip was then prepped and draped in a sterile manner in the usual fashion. A 4 to 5 cm incision was made in line with the greater trochanter but proximal to the greater trochanter. The subcutaneous tissue and fascia were split. A starting bone all was used to engage the trochanteric fossa Just medial to the tip of the trochanter. The starting awl was impacted to lesser trochanter and a guidepin was then inserted. The position of the guidepin was confirmed on both AP and lateral views. Reaming was then carried out with the starting reamer. The 11.5 mm diameter doug and guide was then utilized to insert the doug through the trochanteric area and pushed distally using C-arm image intensifier and biplanar mode. The leg screw guidepin was inserted through a separate incision more distal. This was inserted in the proximate midline in both AP and lateral C arm images. The depth of the guidepin was 91 mm. The compression screw drills were then utilized both short and long. The antirotation bar was inserted. The lag screw reamer was then utilized and placed over the previously inserted pin to the appropriate depth. The 90 mm lag screw was inserted and the compression screw followed achieving nice compression at the fracture site. The alignment of the fracture was very good on both AP and lateral views as well as the fixation. A third incision was made for the distal locking screw. Bicortical fixation was achieved with a 35 mm cortical screw. The wounds were irrigated. The subcutaneous tissue was closed with 2-0 Vicryl and the skin was closed with 3-0 nylon and dry sterile mepilex dressings. There is no deformity to the leg. The patient tolerated the procedure well. The patient did receive 2 g of Ancef prior to the incision.A physician assistant administrator was medically necessary to help with prepping and draping, positioning, protection of vital structures, assistance during the procedure including wound closure, dressing and/or splinting.
[2022-02-07] MEDS ORDERED: LACTATED RINGERS 900 ML IV ONE (16:25)
[2022-02-07] MEDS ORDERED: SODIUM CHLORIDE FLUSH 0.9% 10 ML SYRINGE IVP SCH (17:00)
--- NOTE | 2022-02-07 17:05 | ANESTHESIA POST OP EVALUATION ---
Anesthesia Post Eval - Post Anesthesia Eval Vitals: Last Vital Signs Temp 36.7 C 02/07/22 16:55 Pulse 86 02/07/22 16:55 Resp 21 02/07/22 16:55 BP 157/61 H 02/07/22 16:55 Pulse Ox 96 02/07/22 16:55 O2 Flow Rate CV Function Including HR & BP: Stable Pain Control: Satisfactory Nausea & Vomiting: Negative Mental Status: Baseline Respiratory Status: Airway Patent Hydration Status: Satisfactory Anesthesia Complications: None
[2022-02-07] MEDS: INSULIN LISPRO 300 UNIT/3 ML PEN SUBQ SCH ×2 (19:07→20:59)
[2022-02-07] MEDS: ASPIRIN EC 81 MG TABLET PO SCH (20:58)
[2022-02-07] MEDS ORDERED: INSULIN GLARGINE-YFGN 300 UNIT/3 ML PEN SUBQ SCH (21:00)
[2022-02-07] MEDS ORDERED: INSULIN LISPRO 300 UNIT/3 ML PEN SUBQ SCH ×2 (21:00)
[2022-02-07] MEDS ORDERED: INSULIN NPH HUMAN 300 UNIT/3 ML VIAL SUBQ SCH (21:00)
[2022-02-07] MEDS ORDERED: INSU100I18 SUBQ SCH (21:00)
[2022-02-08 04:58] LABS: BASOPHILS # (AUTO) 0.1 10^3/uL (0.0-0.1); BASOPHILS % (AUTO) 0.9 %; EOSINOPHILS # (AUTO) 0.1 10^3/uL (0.0-0.7); EOSINOPHILS % (AUTO) 1.6 %; HCT - HEMATOCRIT 37.1 % (42.0-52.0); HGB - HEMOGLOBIN 12.6 g/dL (14.0-18.0); LYMPHOCYTES # (AUTO) 2.4 10^3/uL (1.5-3.5); LYMPHOCYTES % (AUTO) 29.4 %; MEAN CORPUSCULAR HEMOGLOBIN 31.9 pg (27.0-31.0); MEAN CORPUSCULAR VOLUME 93.9 fL (80.0-94.0); MEAN PLATELET VOLUME 8.7 fL (7.4-11.4); MONOCYTES # (AUTO) 0.6 10^3/uL (0.0-1.0); MONOCYTES % (AUTO) 7.6 %; NEUTROPHILS # (AUTO) 4.9 10^3/uL (1.5-6.6); NEUTROPHILS % (AUTO) 60.4 %; PLT - PLATELET COUNT 225 10^3/uL (130-450); RED BLOOD COUNT 3.95 10^6/uL (4.70-6.10); RED CELL DISTRIBUTION WIDTH 13.3 % (12.0-15.0); WHITE BLOOD COUNT 8.1 x10^3/uL (4.8-10.8)
[2022-02-08 05:08] LABS: CALCIUM 8.5 mg/dL (8.5-10.3); CREATININE 0.9 mg/dL (0.6-1.2); POTASSIUM 4.4 mmol/L (3.5-5.0)
[2022-02-08] MEDS: MORPHINE 2 MG/ML CARPUJECT IVP PRN ×2 (06:26→19:49)
[2022-02-08] MEDS: ACETAMINOPHEN 325 MG TABLET PO PRN ×2 (06:27→16:06)
[2022-02-08] MEDS: INSULIN LISPRO 300 UNIT/3 ML PEN SUBQ SCH ×3 (07:59→16:56)
[2022-02-08] MEDS: SODIUM CHLORIDE FLUSH 0.9% 10 ML SYRINGE IVP SCH ×3 (08:00→23:42)
[2022-02-08] MEDS ORDERED: ASPIRIN EC 81 MG TABLET PO SCH (09:00)
--- NOTE | 2022-02-08 09:25 | PROVIDER PROGRESS NOTE ---
Subjective - General Admit Date: 02/06/22 Procedure Date: 02/07/22 Post Op Days: 1 - Review of Systems General: positive: No symptoms - Other Other Information/Narrative: He is postop day 1 following open reduction internal fixation of his left hip fracture with intramedullary nail and lag screw. He is doing better today. His pain is decreased. He is alert. He denies chest pain, shortness of breath, nausea or vomiting. He can move in bed much easier now. His pain seems to be under adequate control. Objective - Patient Data Vital Signs: Vital Signs x48h Temp Pulse Resp BP Pulse Ox 02/08/22 08:00 36.8 C 74 16 116/51 L 94 02/08/22 04:48 36.5 C 71 16 111/56 L 93 Weight: Weight 02/06/22 02/07/22 02/08/22 23:59 23:59 23:59 Weight (kg) 72.575 kg 72.575 kg Intake & Output: Intake and Output Totals x24h 02/06/22 02/07/22 02/08/22 23:59 23:59 23:59 Intake Total 552.5 3472.667 150 Output Total 1650 475 Balance 552.5 1822.667 -325 - Lab Results Lab Results: 02/08/22 04:48 02/08/22 04:48 Other Lab Results: Lab Results x24hrs 02/08/22 02/08/22 02/07/22 Range/Units 04:48 04:48 06:05 WBC 8.1 (4.8-10.8) x10^3/uL RBC 3.95 L (4.70-6.10) 10^6/uL Hgb 12.6 L (14.0-18.0) g/dL Hct 37.1 L (42.0-52.0) % MCV 93.9 (80.0-94.0) fL MCH 31.9 H (27.0-31.0) pg MCHC 34.0 (32.0-36.0) g/dL RDW 13.3 (12.0-15.0) % Plt Count 225 (130-450) 10^3/uL MPV 8.7 (7.4-11.4) fL Neut # (Auto) 4.9 (1.5-6.6) 10^3/uL Lymph # (Auto) 2.4 (1.5-3.5) 10^3/uL [place] # (Auto) 0.6 (0.0-1.0) 10^3/uL Eos # (Auto) 0.1 (0.0-0.7) 10^3/uL Baso # (Auto) 0.1 (0.0-0.1) 10^3/uL Absolute Nucleated RBC 0.00 x10^3/uL Nucleated RBC % 0.0 /100WBC Sodium 134 L (135-145) mmol/L Potassium 4.4 (3.5-5.0) mmol/L Chloride 100 L (101-111) mmol/L Carbon Dioxide 27 (21-32) mmol/L Anion Gap 7.0 (6-13) BUN 16 (6-20) mg/dL Creatinine 0.9 (0.6-1.2) mg/dL Estimated GFR (MDRD) 86 L (>89) Glucose 70 (70-100) mg/dL Estimat Average Glucose 171 H (70-100) mg/dL Hemoglobin A1c % 7.6 H (4.27-6.07) % Calcium 8.5 (8.5-10.3) mg/dL - Current Medications Current Medications: Current Medications Generic Name Dose Route Start Last Admin Trade Name Freq PRN Reason Stop Dose Admin Acetaminophen 650 mg 02/06/22 21:33 02/08/22 06:27 Acetaminophen 325 Mg Tablet PO 650 mg Q4HR PRN Administration Pain 1 to 4, or Fever Hydrocodone Bitart/Acetaminophen 1 tab 02/06/22 21:33 02/07/22 20:58 Hydrocod/Acetam 5/325 Mg Tablet PO 1 tab Q4HR PRN Administration Pain 5 to 7 Aspirin 81 mg 02/07/22 21:00 02/07/22 20:58 Aspirin Ec 81 Mg Tablet PO 81 mg BID JENNIFER Administration Sodium Chloride 1,000 mls @ 50 mls/hr 02/07/22 18:51 02/07/22 20:57 Normal Saline 0.9% IV 50 mls/hr .Q20H JENNIFER Administration Insulin Human Lispro 2 - 10 unit 02/07/22 18:52 02/08/22 07:59 Insulin Lispro 300 Unit/3 Ml Pen SUBQ Not Given 0800,1200,1700,2100 [facility] Protocol Morphine Sulfate 2 mg 02/06/22 21:33 02/08/22 06:26 Morphine 2 Mg/Ml Carpuject IVP 2 mg Q2HR PRN Administration Pain 8 to 10 Oxycodone HCl 5 mg 02/06/22 21:33 02/07/22 23:44 Oxycodone 5 Mg Tablet PO 5 mg Q4HR PRN Administration Pain 5 to 7 Sodium Chloride 10 ml 02/07/22 01:00 02/08/22 08:00 Sodium Chloride Flush 0.9% 10 Ml Syringe IVP Not Given 0100,0900,1700 [facility] - Physical Exam Comments/Other: He is alert and oriented, no acute distress. There is mild blood drainage into his Mepilex dressing. The dressing is dry and intact and the blood appears to be old. He can move his leg much better today. His neurovascular status is intact to left leg. There is no sign of hematoma to left hip. Impression/Plan - Problem List Problem List: 's status post open duction internal fixation basilar neck femoral neck fracture left hip The plan is ambulation with physical therapy/Occupational Therapy, use of walker, weightbearing as tolerated left leg. He should continue with oral pain medication as much as possible to control his pain. Aspirin 81 mg p.o. twice daily for deep venous thrombosis prophylaxis for 6 weeks from time of surgery. He can be discharged to home when he meets criteria including stable medical c omorbidities, able to ambulate with walker, pain control, able to void, absence of nausea and vomiting. A follow-up within 1 to 2 weeks upon discharge would be helpful to the orthopedic clinic, preferably within 1 week. I strongly advised cigarette smoking cessation for variety of reasons including to facilitate bone healing. This has been discussed with him in the past specially since she has a cardiac history and diabetes. He needs to keep his diabetes under good control to prevent any postoperative infection to left hip.
--- NOTE | 2022-02-08 10:26 | PROVIDER PROGRESS NOTE ---
Assessment/Plan - Problem List (1) Intertrochanteric fracture of left hip Qualifiers: Encounter type: subsequent encounter Fracture type: closed Fracture alignment: displaced Assessment/Plan: He fractured his hip falling off a ladder. He underwent successful hip surgery yesterday afternoon. (2) S/P hip surgery (Z98.890) Assessment/Plan: Today is POD #1. Continue iv narcotic meds for pain prn Start PT and OT today, SNF reccommeded. He is requesting that his service dog Chari who is a 5-year-old Rottweiler be allowed to visit. Further recommendations and plan as per Ortho (3) IDDM (insulin dependent diabetes mellitus) Assessment/Plan: His Insulin and fingerstick checks and ss coverage have been ordered as well as a carb-controlled diet to resume after the OR. (4) Brittle Diabetes Assessment/Plan: There are documented glucoses for him is gone from 300 down to 70. He had demanded NPH insulin be used and only at night. The sliding scale coverage was high moderate which was given yesterday for dinner and at bedtime and likely this combination of insulin because this morning's hypoglycemia. Nutrition assistance appreciated (5) Hx CABG Assessment/Plan: As per Hx. He is getting baby aspirin twice daily now because of the hip surgery, for DVT prophylaxis and should be on aspirin lifelong because of CABG. (6) Abnormal EKG Assessment/Plan: Inferior Q waves are seen on his EKG, therefore I asked about his cardiac Hx and whether there was an SC. He said that "they thought he had an SC, but after the CABG said no" An Echo was done today pre-op, and no inferior wall motion abnormality was seen. This suggests that he probably did have an SC but that the inferior wall was reperfused with blood flow restored via a CABG. He has no sx of chest pain since the CABG. Therefore the likelihood that he still has well perfused myocardium is good. - Current Meds Current Meds: Current Medications Generic Name Dose Route Start Last Admin Trade Name Freq PRN Reason Stop Dose Admin Acetaminophen 650 mg 02/06/22 21:33 02/08/22 06:27 Acetaminophen 325 Mg Tablet PO 650 mg Q4HR PRN Administration Pain 1 to 4, or Fever Hydrocodone Bitart/Acetaminophen 1 tab 02/06/22 21:33 02/07/22 20:58 Hydrocod/Acetam 5/325 Mg Tablet PO 1 tab Q4HR PRN Administration Pain 5 to 7 Aspirin 81 mg 02/07/22 21:00 02/07/22 20:58 Aspirin Ec 81 Mg Tablet PO 81 mg BID JENNIFER Administration Sodium Chloride 1,000 mls @ 50 mls/hr 02/07/22 18:51 02/07/22 20:57 Normal Saline 0.9% IV 50 mls/hr .Q20H JENNIFER Administration Morphine Sulfate 2 mg 02/06/22 21:33 02/08/22 06:26 Morphine 2 Mg/Ml Carpuject IVP 2 mg Q2HR PRN Administration Pain 8 to 10 Oxycodone HCl 5 mg 02/06/22 21:33 02/07/22 23:44 Oxycodone 5 Mg Tablet PO 5 mg Q4HR PRN Administration Pain 5 to 7 Sodium Chloride 10 ml 02/07/22 01:00 02/08/22 08:00 Sodium Chloride Flush 0.9% 10 Ml Syringe IVP Not Given 0100,0900,1700 JENNIFER - Lab Result Fish Bone Diagrams: 02/08/22 04:48 02/08/22 04:48 - Additional Planning My Orders: My Active Orders 02/07/22 18:50 Blood Glucose Checks - Eating [RC] 0800,1200,1700,2100 Initiate Hypoglycemia Protocol [RC] .protocol 02/07/22 18:51 Blood Glucose Checks - Eating [RC] 0800,1200,1700,2100 Initiate Hypoglycemia Protocol [RC] .protocol Sodium Chloride 0.9% [Normal Saline 0.9%] 1,000 ml IV 50 mls/hr 02/08/22 12:00 Insulin Lispro [Humalog Kwikpen U-100] 1 - 9 unit SUBQ 0800,1200,1700 02/08/22 21:00 Insulin NPH Human [Humulin N] 10 unit SUBQ BID Subjective - Subjective Patient Reports: Pain (He has severe pain in the left hip and feels "weakness" in the entire left leg) Objective Vital Signs: Vital Signs - 24 hr 02/07/22 02/07/22 02/07/22 16:25 16:30 16:35 Temperature 36.7 C 36.7 C Heart Rate 90 94 92 Heart Rate [ Brachial] Respiratory Rate Blood Pressure 152/72 H 145/65 H 148/80 H Blood Pressure [Right Brachial artery] O2 Saturation 94 97 97 02/07/22 02/07/22 02/07/22 16:40 16:45 16:50 Temperature 36.7 C 36.7 C 36.7 C Heart Rate 92 92 92 Heart Rate [ Brachial] Respiratory Rate Blood Pressure 141/70 H 146/70 H 146/70 H Blood Pressure [Right Brachial artery] O2 Saturation 97 96 96 02/07/22 02/07/22 02/07/22 16:55 17:15 17:45 Temperature 36.7 C 36.6 C 36.6 C Heart Rate 86 Heart Rate [ 81 83 Brachial] Respiratory 21 18 15 Rate Blood Pressure 157/61 H Blood Pressure 145/56 H 148/62 H [Right Brachial artery] O2 Saturation 96 94 96 02/07/22 02/07/22 02/07/22 18:15 19:15 20:15 Temperature 36.7 C 37.5 C 37.6 C Heart Rate Heart Rate [ 88 90 87 Brachial] Respiratory 17 17 16 Rate Blood Pressure Blood Pressure 140/56 H 120/56 L 122/51 L [Right Brachial artery] O2 Saturation 96 93 93 02/07/22 02/08/22 02/08/22 23:39 04:48 10:00 Temperature 36.6 C 36.5 C 36.8 C Heart Rate Heart Rate [ 79 71 74 Brachial] Respiratory 16 16 16 Rate Blood Pressure Blood Pressure 108/51 L 111/56 L 116/51 L [Right Brachial artery] O2 Saturation 93 93 94 Oxygen O2 Source Room air I&O (Last 24 Hrs): Intake and Output Totals x24h 02/06/22 02/07/22 02/08/22 23:59 23:59 23:59 Intake Total 552.5 3472.667 150 Output Total 1650 475 Balance 552.5 1822.667 -325 General: Alert, Oriented x3, Other (Seems sleepy, getting narcotics for pain) HEENT: Mucous membr. moist/pink Neck: Supple Neuro: Non Focal, Other (Lethargic) Cardiovascular: Regular rate Respiratory: No respiratory distress Abdomen: Normal bowel sounds, Soft Extremities: No edema - Results Results: Laboratory Results WBC 8.1 x10^3/uL (4.8-10.8) 02/08/22 04:48 RBC 3.95 10^6/uL (4.70-6.10) L 02/08/22 04:48 Hgb 12.6 g/dL (14.0-18.0) L 02/08/22 04:48 Hct 37.1 % (42.0-52.0) L 02/08/22 04:48 MCV 93.9 fL (80.0-94.0) 02/08/22 04:48 MCH 31.9 pg (27.0-31.0) H 02/08/22 04:48 MCHC 34.0 g/dL (32.0-36.0) 02/08/22 04:48 RDW 13.3 % (12.0-15.0) 02/08/22 04:48 Plt Count 225 10^3/uL (130-450) 02/08/22 04:48 MPV 8.7 fL (7.4-11.4) 02/08/22 04:48 Neut # (Auto) 4.9 10^3/uL (1.5-6.6) 02/08/22 04:48 Lymph # (Auto) 2.4 10^3/uL (1.5-3.5) 02/08/22 04:48 [place] # (Auto) 0.6 10^3/uL (0.0-1.0) 02/08/22 04:48 Eos # (Auto) 0.1 10^3/uL (0.0-0.7) 02/08/22 04:48 Baso # (Auto) 0.1 10^3/uL (0.0-0.1) 02/08/22 04:48 Absolute Nucleated RBC 0.00 x10^3/uL 02/08/22 04:48 Nucleated RBC % 0.0 /100WBC 02/08/22 04:48 PT 11.0 secs (9.9-12.6) 02/07/22 08:10 INR 1.0 (0.8-1.2) 02/07/22 08:10 Sodium 134 mmol/L (135-145) L 02/08/22 04:48 Potassium 4.4 mmol/L (3.5-5.0) 02/08/22 04:48 Chloride 100 mmol/L (101-111) L 02/08/22 04:48 Carbon Dioxide 27 mmol/L (21-32) 02/08/22 04:48 Anion Gap 7.0 (6-13) 02/08/22 04:48 BUN 16 mg/dL (6-20) 02/08/22 04:48 Creatinine 0.9 mg/dL (0.6-1.2) 02/08/22 04:48 Estimated GFR (MDRD) 86 (>89) L 02/08/22 04:48 Glucose 70 mg/dL (70-100) 02/08/22 04:48 Estimat Average Glucose 171 mg/dL (70-100) H 02/07/22 06:05 Hemoglobin A1c % 7.6 % (4.27-6.07) H 02/07/22 06:05 Calcium 8.5 mg/dL (8.5-10.3) 02/08/22 04:48 Total Bilirubin 1.0 mg/dL (0.2-1.0) 02/07/22 06:05 AST 16 IU/L (10-42) 02/07/22 06:05 ALT 14 IU/L (10-60) 02/07/22 06:05 Alkaline Phosphatase 66 IU/L (42-121) 02/07/22 06:05 Total Protein 6.0 g/dL (6.7-8.2) L 02/07/22 06:05 Albumin 3.5 g/dL (3.2-5.5) 02/07/22 06:05 Globulin 2.5 g/dL (2.1-4.2) 02/07/22 06:05 Albumin/Globulin Ratio 1.4 (1.0-2.2) 02/07/22 06:05 Triglycerides 65 mg/dL (-149) 02/07/22 06:05 Cholesterol 164 mg/dL (-199) 02/07/22 06:05 LDL Cholesterol, Calc 90 mg/dL (-129) 02/07/22 06:05 VLDL Cholesterol 13 mg/dL 02/07/22 06:05 HDL Cholesterol 61 mg/dL (60-) 02/07/22 06:05 LDL/HDL Ratio 1.5 (<3.6) 02/07/22 06:05 Cholesterol/HDL Ratio 2.7 (<5.0) 02/07/22 06:05 TSH 3.57 uIU/mL (0.34-5.60) 02/07/22 06:05 Nasal Adenovirus (PCR) NOT DETECTED 02/06/22 21:11 Nasal B. parapertussis DNA (PCR) NOT DETECTED 02/06/22 21:11 Nasal Coronavir 229E PCR NOT DETECTED 02/06/22 21:11 Nasal Coronavir HKU1 PCR NOT DETECTED 02/06/22 21:11 Nasal Coronavir NL63 PCR NOT DETECTED 02/06/22 21:11 Nasal Coronavir OC43 PCR NOT DETECTED 02/06/22 21:11 Nasal Enterovir/Rhinovir PCR NOT DETECTED 02/06/22 21:11 Nasal Influenza B PCR NOT DETECTED 02/06/22 21:11 Nasal Influenza A PCR NOT DETECTED 02/06/22 21:11 Nasal Parainfluen 1 PCR NOT DETECTED 02/06/22 21:11 Nasal Parainfluen 2 PCR NOT DETECTED 02/06/22 21:11 Nasal Parainfluen 3 PCR NOT DETECTED 02/06/22 21:11 Nasal Parainfluen 4 PCR NOT DETECTED 02/06/22 21:11 Nasal RSV (PCR) NOT DETECTED 02/06/22 21:11 Nasal B.pertussis DNA PCR NOT DETECTED 02/06/22 21:11 Nasal C.pneumoniae (PCR) NOT DETECTED 02/06/22 21:11 Jabari Human Metapneumo PCR NOT DETECTED 02/06/22 21:11 Nasal M.pneumoniae (PCR) NOT DETECTED 02/06/22 21:11 Nasal SARS-CoV-2 (PCR) NOT DETECTED 02/06/22 21:11
[2022-02-08] MEDS: ASPIRIN EC 81 MG TABLET PO SCH ×2 (10:27→20:41)
[2022-02-08] MEDS: HYDROcod/ACETAM 5/325 MG TABLET PO PRN ×2 (10:28→18:45)
--- NOTE | 2022-02-08 14:55 | XRAY Report ---
PROCEDURE: OR C-Arm Procedure INDICATIONS: HIP FRACTURE TECHNIQUE: 2 intraoperative images were acquired. COMPARISON: X-ray hip 02/06/2022 FINDINGS: Intraoperative x-rays demonstrating fixation of the right femoral head, neck and shaft. Hardware is i ntact. There is good anatomic alignment of fracture fragments. IMPRESSION: Intraoperative right femoral fixation. Reviewed by: Chasity Holley MD on 02/08/2022 2:54 PM PDT Approved by: Chasity Holley MD on 02/08/2022 2:54 PM PDT Station ID: [id number]
[2022-02-08] MEDS: SODIUM CHLORIDE 0.9% 1,000 ML IV SCH (18:45)
[2022-02-08] MEDS ORDERED: INSULIN NPH HUMAN 300 UNIT/3 ML VIAL SUBQ SCH ×2 (21:00)
[2022-02-09 05:45] LABS: BASOPHILS # (AUTO) 0.1 10^3/uL (0.0-0.1); BASOPHILS % (AUTO) 0.9 %; EOSINOPHILS # (AUTO) 0.1 10^3/uL (0.0-0.7); EOSINOPHILS % (AUTO) 1.7 %; HCT - HEMATOCRIT 35.1 % (42.0-52.0); HGB - HEMOGLOBIN 11.9 g/dL (14.0-18.0); LYMPHOCYTES # (AUTO) 1.5 10^3/uL (1.5-3.5); LYMPHOCYTES % (AUTO) 22.1 %; MEAN CORPUSCULAR HEMOGLOBIN 31.5 pg (27.0-31.0); MEAN CORPUSCULAR HGB CONC 33.9 g/dL (32.0-36.0); MEAN CORPUSCULAR VOLUME 92.9 fL (80.0-94.0); MEAN PLATELET VOLUME 9.4 fL (7.4-11.4); MONOCYTES # (AUTO) 0.5 10^3/uL (0.0-1.0); MONOCYTES % (AUTO) 7.7 %; NEUTROPHILS # (AUTO) 4.7 10^3/uL (1.5-6.6); NEUTROPHILS % (AUTO) 67.5 %; PLT - PLATELET COUNT 212 10^3/uL (130-450); RED BLOOD COUNT 3.78 10^6/uL (4.70-6.10); RED CELL DISTRIBUTION WIDTH 13.4 % (12.0-15.0)
[2022-02-09] MEDS: ACETAMINOPHEN 325 MG TABLET PO PRN ×4 (05:47→18:29)
[2022-02-09] MEDS: oxyCODONE 5 MG TABLET PO PRN ×4 (05:47→18:29)
[2022-02-09 06:00] LABS: CALCIUM 8.4 mg/dL (8.5-10.3); CREATININE 0.8 mg/dL (0.6-1.2); POTASSIUM 4.1 mmol/L (3.5-5.0)
[2022-02-09] MEDS: INSULIN LISPRO 300 UNIT/3 ML PEN SUBQ SCH ×3 (07:51→16:55)
[2022-02-09] MEDS: SODIUM CHLORIDE FLUSH 0.9% 10 ML SYRINGE IVP SCH ×2 (08:21→16:13)
[2022-02-09] MEDS: ASPIRIN EC 81 MG TABLET PO SCH ×2 (08:21→20:25)
[2022-02-09] MEDS: INSULIN NPH HUMAN 300 UNIT/3 ML VIAL SUBQ SCH ×2 (08:21→20:26)
[2022-02-09] MEDS: MORPHINE 2 MG/ML CARPUJECT IVP PRN (08:22)
[2022-02-09] MEDS: DOCUSATE SODIUM 100 MG CAPSULE PO PRN (08:37)
[2022-02-09] MEDS: polyethylene glycoL 3350 17 GM PACKET PO SCH (11:06)
--- NOTE | 2022-02-09 17:19 | PROVIDER PROGRESS NOTE ---
Assessment/Plan - Problem List (1) Intertrochanteric fracture of left hip Qualifiers: Encounter type: subsequent encounter Fracture type: closed Fracture alignment: displaced Assessment/Plan: (1) Intertrochanteric fracture of left hip Qualifiers: Encounter type: subsequent encounter Fracture type: closed Fracture alignment: displaced Assessment/Plan: He fractured his hip falling off a ladder. He underwent successful hip surgery (2) S/P hip surgery (Z98.890) Assessment/Plan: Today is POD #2. Continue iv narcotic meds for pain prn Working with PT and OT, SNF recommended. He is requesting that his service dog Chari who is a 5-year-old Rottweiler be allowed to visit. Further recommendations and plan as per Ortho (3) IDDM (insulin dependent diabetes mellitus) Assessment/Plan: His Insulin and fingerstick checks and ss coverage have been ordered as well as a carb-controlled diet to resume after the OR. (4) Brittle Diabetes Assessment/Plan: There are documented glucoses for him is gone from 300 down to 70. He had demanded NPH insulin be used and only at night. The sliding scale coverage was high moderate which was given yesterday for dinner and at bedtime and likely this combination of insulin because this morning's hypoglycemia. Nutrition assistance appreciated (5) Hx CABG Assessment/Plan: As per Hx. He is getting baby aspirin twice daily now because of the hip surgery, for DVT prophylaxis for 6 weeks and after that he should be on aspirin lifelong because of CABG. (6) Abnormal EKG Assessment/Plan: Inferior Q waves are seen on his EKG, therefore I asked about his cardiac Hx and whether there was an VT. He said that "they thought he had an VT, but after the CABG said no" An Echo was done today pre-op, and no inferior wall motion abnormality was seen. This suggests that he probably did have an VT but that the inferior wall was reperfused with blood flow restored via a CABG. He has no sx of chest pain since the CABG. Therefore the likelihood that he stil l has well perfused myocardium is good. - Current Meds Current Meds: Current Medications Generic Name Dose Route Start Last Admin Trade Name Freq PRN Reason Stop Dose Admin Acetaminophen 650 mg 02/06/22 21:33 02/09/22 14:32 Acetaminophen 325 Mg Tablet PO 650 mg Q4HR PRN Administration Pain 1 to 4, or Fever Hydrocodone Bitart/Acetaminophen 1 tab 02/06/22 21:33 02/08/22 18:45 Hydrocod/Acetam 5/325 Mg Tablet PO 1 tab Q4HR PRN Administration Pain 5 to 7 Aspirin 81 mg 02/07/22 21:00 02/09/22 08:21 Aspirin Ec 81 Mg Tablet PO 81 mg BID JENNIFER Administration Docusate Sodium 100 mg 02/07/22 16:15 02/09/22 08:37 Docusate Sodium 100 Mg Capsule PO 100 mg BID PRN Administration Constipation Insulin Human Lispro 1 - 9 unit 02/08/22 12:00 02/09/22 16:55 Insulin Lispro 300 Unit/3 Ml Pen SUBQ Not Given 0800,1200,1700 [facility] Protocol Insulin Human NPH 12 unit 02/09/22 09:00 02/09/22 08:21 Insulin Nph Human 300 Unit/3 Ml Vial SUBQ 12 unit BID JENNIFER Administration Morphine Sulfate 2 mg 02/06/22 21:33 02/09/22 08:22 Morphine 2 Mg/Ml Carpuject IVP 2 mg Q2HR PRN Administration Pain 8 to 10 Oxycodone HCl 5 mg 02/06/22 21:33 02/09/22 14:32 Oxycodone 5 Mg Tablet PO 5 mg Q4HR PRN Administration Pain 5 to 7 Polyethylene Glycol 17 gm 02/09/22 11:00 02/09/22 11:06 Polyethylene Glycol 3350 17 Gm Packet PO 17 gm DAILY JENNIFER Administration Sodium Chloride 10 ml 02/07/22 01:00 02/09/22 16:13 Sodium Chloride Flush 0.9% 10 Ml Syringe IVP 10 ml 0100,0900,1700 JENNIFER Administration - Lab Result Fish Bone Diagrams: 02/09/22 05:26 02/09/22 05:26 - Additional Planning My Orders: My Active Orders 02/09/22 09:00 Insulin NPH Human [Humulin N] 12 unit SUBQ BID 02/09/22 11:00 polyethylene glycoL 3350 [Miralax] 17 gm PO DAILY Subjective - Subjective Patient Reports: Feeling Better (after narcotic pain meds), Resting Comfortably Nursing Reports: Other (Is working with P\\T) Objective Vital Signs: Vital Signs - 24 hr 02/08/22 02/08/22 02/09/22 19:48 23:57 05:12 Temperature 36.8 C 36.6 C 36.6 C Heart Rate [ 97 69 72 Brachial] Respiratory 16 20 18 Rate Blood Pressure 113/58 L 122/50 L 129/59 L [Right Brachial artery] O2 Saturation 93 92 94 02/09/22 02/09/22 07:20 16:12 Temperature 36.7 C 36.6 C Heart Rate [ 71 74 Brachial] Respiratory 20 20 Rate Blood Pressure 131/56 H 132/56 H [Right Brachial artery] O2 Saturation 93 94 Oxygen O2 Source Room air I&O (Last 24 Hrs): Intake and Output Totals x24h 02/07/22 02/08/22 02/09/22 23:59 23:59 23:59 Intake Total 3472.667 2080 1084.16 Output Total 1650 2150 975 Balance 1822.667 -70 109.16 General: Other (Sleepy, just had narcotics) HEENT: Atraumatic Neck: Supple Neuro: Non Focal Cardiovascular: Regular rate Respiratory: No respiratory distress Abdomen: Soft Extremities: No edema - Results Results: Laboratory Results WBC 7.0 x10^3/uL (4.8-10.8) 02/09/22 05:26 RBC 3.78 10^6/uL (4.70-6.10) L 02/09/22 05:26 Hgb 11.9 g/dL (14.0-18.0) L 02/09/22 05:26 Hct 35.1 % (42.0-52.0) L 02/09/22 05:26 MCV 92.9 fL (80.0-94.0) 02/09/22 05:26 MCH 31.5 pg (27.0-31.0) H 02/09/22 05:26 MCHC 33.9 g/dL (32.0-36.0) 02/09/22 05:26 RDW 13.4 % (12.0-15.0) 02/09/22 05:26 Plt Count 212 10^3/uL (130-450) 02/09/22 05:26 MPV 9.4 fL (7.4-11.4) 02/09/22 05:26 Neut # (Auto) 4.7 10^3/uL (1.5-6.6) 02/09/22 05:26 Lymph # (Auto) 1.5 10^3/uL (1.5-3.5) 02/09/22 05:26 [place] # (Auto) 0.5 10^3/uL (0.0-1.0) 02/09/22 05:26 Eos # (Auto) 0.1 10^3/uL (0.0-0.7) 02/09/22 05:26 Baso # (Auto) 0.1 10^3/uL (0.0-0.1) 02/09/22 05:26 Absolute Nucleated RBC 0.00 x10^3/uL 02/09/22 05:26 Nucleated RBC % 0.0 /100WBC 02/09/22 05:26 PT 11.0 secs (9.9-12.6) 02/07/22 08:10 INR 1.0 (0.8-1.2) 02/07/22 08:10 Sodium 136 mmol/L (135-145) 02/09/22 05:26 Potassium 4.1 mmol/L (3.5-5.0) 02/09/22 05:26 Chloride 101 mmol/L (101-111) 02/09/22 05:26 Carbon Dioxide 26 mmol/L (21-32) 02/09/22 05:26 Anion Gap 9.0 (6-13) 02/09/22 05:26 BUN 13 mg/dL (6-20) 02/09/22 05:26 Creatinine 0.8 mg/dL (0.6-1.2) 02/09/22 05:26 Estimated GFR (MDRD) 98 (>89) 02/09/22 05:26 Glucose 235 mg/dL (70-100) H 02/09/22 05:26 Estimat Average Glucose 171 mg/dL (70-100) H 02/07/22 06:05 Hemoglobin A1c % 7.6 % (4.27-6.07) H 02/07/22 06:05 Calcium 8.4 mg/dL (8.5-10.3) L 02/09/22 05:26 Total Bilirubin 1.0 mg/dL (0.2-1.0) 02/07/22 06:05 AST 16 IU/L (10-42) 02/07/22 06:05 ALT 14 IU/L (10-60) 02/07/22 06:05 Alkaline Phosphatase 66 IU/L (42-121) 02/07/22 06:05 Total Protein 6.0 g/dL (6.7-8.2) L 02/07/22 06:05 Albumin 3.5 g/dL (3.2-5.5) 02/07/22 06:05 Globulin 2.5 g/dL (2.1-4.2) 02/07/22 06:05 Albumin/Globulin Ratio 1.4 (1.0-2.2) 02/07/22 06:05 Triglycerides 65 mg/dL (-149) 02/07/22 06:05 Cholesterol 164 mg/dL (-199) 02/07/22 06:05 LDL Cholesterol, Calc 90 mg/dL (-129) 02/07/22 06:05 VLDL Cholesterol 13 mg/dL 02/07/22 06:05 HDL Cholesterol 61 mg/dL (60-) 02/07/22 06:05 LDL/HDL Ratio 1.5 (<3.6) 02/07/22 06:05 Cholesterol/HDL Ratio 2.7 (<5.0) 02/07/22 06:05 TSH 3.57 uIU/mL (0.34-5.60) 02/07/22 06:05 Nasal Adenovirus (PCR) NOT DETECTED 02/06/22 21:11 Nasal B. parapertussis DNA (PCR) NOT DETECTED 02/06/22 21:11 Nasal Coronavir 229E PCR NOT DETECTED 02/06/22 21:11 Nasal Coronavir HKU1 PCR NOT DETECTED 02/06/22 21:11 Nasal Coronavir NL63 PCR NOT DETECTED 02/06/22 21:11 Nasal Coronavir OC43 PCR NOT DETECTED 02/06/22 21:11 Nasal Enterovir/Rhinovir PCR NOT DETECTED 02/06/22 21:11 Nasal Influenza B PCR NOT DETECTED 02/06/22 21:11 Nasal Influenza A PCR NOT DETECTED 02/06/22 21:11 Nasal Parainfluen 1 PCR NOT DETECTED 02/06/22 21:11 Nasal Parainfluen 2 PCR NOT DETECTED 02/06/22 21:11 Nasal Parainfluen 3 PCR NOT DETECTED 02/06/22 21:11 Nasal Parainfluen 4 PCR NOT DETECTED 02/06/22 21:11 Nasal RSV (PCR) NOT DETECTED 02/06/22 21:11 Nasal B.pertussis DNA PCR NOT DETECTED 02/06/22 21:11 Nasal C.pneumoniae (PCR) NOT DETECTED 02/06/22 21:11 Jabari Human Metapneumo PCR NOT DETECTED 02/06/22 21:11 Nasal M.pneumoniae (PCR) NOT DETECTED 02/06/22 21:11 Nasal SARS-CoV-2 (PCR) NOT DETECTED 02/06/22 21:11
[2022-02-10] MEDS: oxyCODONE 5 MG TABLET PO PRN ×4 (00:15→20:55)
[2022-02-10] MEDS: ACETAMINOPHEN 325 MG TABLET PO PRN ×3 (00:15→14:52)
[2022-02-10] MEDS: SODIUM CHLORIDE FLUSH 0.9% 10 ML SYRINGE IVP SCH ×4 (00:15→23:51)
[2022-02-10 05:05] LABS: BASOPHILS # (AUTO) 0.1 10^3/uL (0.0-0.1); EOSINOPHILS # (AUTO) 0.2 10^3/uL (0.0-0.7); HCT - HEMATOCRIT 35.1 % (42.0-52.0); HGB - HEMOGLOBIN 11.9 g/dL (14.0-18.0); LYMPHOCYTES # (AUTO) 1.9 10^3/uL (1.5-3.5); LYMPHOCYTES % (AUTO) 31.3 %; MEAN CORPUSCULAR HEMOGLOBIN 31.8 pg (27.0-31.0); MEAN CORPUSCULAR HGB CONC 33.9 g/dL (32.0-36.0); MEAN CORPUSCULAR VOLUME 93.9 fL (80.0-94.0); MEAN PLATELET VOLUME 9.4 fL (7.4-11.4); MONOCYTES # (AUTO) 0.5 10^3/uL (0.0-1.0); MONOCYTES % (AUTO) 8.1 %; NEUTROPHILS # (AUTO) 3.4 10^3/uL (1.5-6.6); NEUTROPHILS % (AUTO) 56.3 %; PLT - PLATELET COUNT 224 10^3/uL (130-450); RED BLOOD COUNT 3.74 10^6/uL (4.70-6.10); RED CELL DISTRIBUTION WIDTH 13.3 % (12.0-15.0)
[2022-02-10 05:15] LABS: CALCIUM 8.5 mg/dL (8.5-10.3); CREATININE 0.7 mg/dL (0.6-1.2); POTASSIUM 3.8 mmol/L (3.5-5.0)
--- NOTE | 2022-02-10 08:53 | PROVIDER PROGRESS NOTE ---
Assessment/Plan - Problem List (1) Intertrochanteric fracture of left hip Qualifiers: Encounter type: subsequent encounter Fracture type: closed Fracture alignment: displaced Assessment/Plan: He fractured his hip falling off a ladder. He underwent successful hip surgery on 02/07/22. (2) S/P hip surgery (Z98.890) Assessment/Plan: Today is POD #3. Continue iv narcotic meds for pain prn Working with PT and OT, SNF recommended. He is requesting that his service dog Chari who is a 5-year-old Rottweiler be allowed to visit. Further recommendations and plan as per Ortho and PT/OT. (3) Brittle Diabetes Assessment/Plan: There are documented glucoses for him from 300 down to 70. This morning he again had a glu level of 70 then after OJ it was 235. Will keep his am Humulin at 12U, but decrease his hs Humulin to 7U. Continue with sliding scale coverage only for breakfast lunch and dinner, no Insulin coverage at bedtime. Will change Lispro to Humulin R Continue glucose checks and sliding scale coverage. Continue hypoglycemia protocol. Sky Line Yarder's assistance appreciated (4) IDDM (insulin dependent diabetes mellitus) Assessment/Plan: His A1c level came back at 7.6 indicating fairly good control at home. His Insulin and fingerstick checks and ss coverage have been ordered as well as a carb-controlled diet. (5) Hx CABG Assessment/Plan: As per Hx. He is getting baby aspirin twice daily now because of the hip surgery, for DVT prophylaxis for 6 weeks and after that he should be on aspirin lifelong because of CABG. (6) Abnormal EKG Assessment/Plan: Inferior Q waves were seen on his EKG, therefore I asked about his cardiac Hx and whether there was an NC. He said that "they thought he had an NC, but after the CABG said no" An Echo was done pre-op, and no inferior wall motion abnormality was seen. This suggests that he probably did have an NC but that the inferior wall was reperfused when blood flow restored via a CABG. He has no sx of chest pain since the CABG. Therefore the likelihood that he still has well perfused myocardium is good. - Current Meds Current Meds: Current Medications Generic Name Dose Route Start Last Admin Trade Name Freq PRN Reason Stop Dose Admin Acetaminophen 650 mg 02/06/22 21:33 02/10/22 06:15 Acetaminophen 325 Mg Tablet PO 650 mg Q4HR PRN Administration Pain 1 to 4, or Fever Hydrocodone Bitart/Acetaminophen 1 tab 02/06/22 21:33 02/08/22 18:45 Hydrocod/Acetam 5/325 Mg Tablet PO 1 tab Q4HR PRN Administration Pain 5 to 7 Aspirin 81 mg 02/07/22 21:00 02/09/22 20:25 Aspirin Ec 81 Mg Tablet PO 81 mg BID JENNIFER Administration Docusate Sodium 100 mg 02/07/22 16:15 02/09/22 08:37 Docusate Sodium 100 Mg Capsule PO 100 mg BID PRN Administration Constipation Insulin Human Lispro 1 - 9 unit 02/08/22 12:00 02/09/22 16:55 Insulin Lispro 300 Unit/3 Ml Pen SUBQ Not Given 0800,1200,1700 [facility] Protocol Morphine Sulfate 2 mg 02/06/22 21:33 02/09/22 08:22 Morphine 2 Mg/Ml Carpuject IVP 2 mg Q2HR PRN Administration Pain 8 to 10 Oxycodone HCl 5 mg 02/06/22 21:33 02/10/22 06:19 Oxycodone 5 Mg Tablet PO 5 mg Q4HR PRN Administration Pain 5 to 7 Polyethylene Glycol 17 gm 02/09/22 11:00 02/09/22 11:06 Polyethylene Glycol 3350 17 Gm Packet PO 17 gm DAILY JENNIFER Administration Sodium Chloride 10 ml 02/07/22 01:00 02/10/22 00:15 Sodium Chloride Flush 0.9% 10 Ml Syringe IVP 10 ml 0100,0900,1700 [facility] Administration - Lab Result Fish Bone Diagrams: 02/10/22 04:50 02/10/22 04:50 - Additional Planning My Orders: My Active Orders 02/09/22 11:00 polyethylene glycoL 3350 [Miralax] 17 gm PO DAILY 02/10/22 09:00 Insulin NPH Human [Humulin N] 12 unit SUBQ DAILY 02/10/22 21:00 Insulin NPH Human [HumuLIN N] 5 unit SUBQ QPM Subjective - Subjective Patient Reports: Other (He reports that he knows he has brittle diabetes. He requests not to be on lispro regular insulin but wants Humulin R.) Objective Vital Signs: Vital Signs - 24 hr 0902/10/22 02/10/22 16:12 00:28 07:25 Temperature 36.6 C 36.4 C L 36.6 C Heart Rate [ 74 67 70 Brachial] Respiratory 20 18 18 Rate Blood Pressure 132/56 H 113/54 L 123/59 L [Right Brachial artery] O2 Saturation 94 96 95 Oxygen O2 Source Room air I&O (Last 24 Hrs): Intake and Output Totals x24h 02/08/22 02/09/22 02/10/22 23:59 23:59 23:59 Intake Total 2080 1854.16 480 Output Total 2150 1475 650 Balance -70 379.16 -170 General: Alert, Oriented x3 HEENT: Mucous membr. moist/pink Neck: Supple, No JVD Neuro: Alert, Non Focal Cardiovascular: Regular rate Respiratory: No respiratory distress Abdomen: Soft Extremities: No edema - Results Results: Laboratory Results WBC 6.0 x10^3/uL (4.8-10.8) 02/10/22 04:50 RBC 3.74 10^6/uL (4.70-6.10) L 02/10/22 04:50 Hgb 11.9 g/dL (14.0-18.0) L 02/10/22 04:50 Hct 35.1 % (42.0-52.0) L 02/10/22 04:50 MCV 93.9 fL (80.0-94.0) 02/10/22 04:50 MCH 31.8 pg (27.0-31.0) H 02/10/22 04:50 MCHC 33.9 g/dL (32.0-36.0) 02/10/22 04:50 RDW 13.3 % (12.0-15.0) 02/10/22 04:50 Plt Count 224 10^3/uL (130-450) 02/10/22 04:50 MPV 9.4 fL (7.4-11.4) 02/10/22 04:50 Neut # (Auto) 3.4 10^3/uL (1.5-6.6) 02/10/22 04:50 Lymph # (Auto) 1.9 10^3/uL (1.5-3.5) 02/10/22 04:50 [place] # (Auto) 0.5 10^3/uL (0.0-1.0) 02/10/22 04:50 Eos # (Auto) 0.2 10^3/uL (0.0-0.7) 02/10/22 04:50 Baso # (Auto) 0.1 10^3/uL (0.0-0.1) 02/10/22 04:50 Absolute Nucleated RBC 0.00 x10^3/uL 02/10/22 04:50 Nucleated RBC % 0.0 /100WBC 02/10/22 04:50 PT 11.0 secs (9.9-12.6) 02/07/22 08:10 INR 1.0 (0.8-1.2) 02/07/22 08:10 Sodium 134 mmol/L (135-145) L 02/10/22 04:50 Potassium 3.8 mmol/L (3.5-5.0) 02/10/22 04:50 Chloride 97 mmol/L (101-111) L 02/10/22 04:50 Carbon Dioxide 31 mmol/L (21-32) 02/10/22 04:50 Anion Gap 6.0 (6-13) 02/10/22 04:50 BUN 11 mg/dL (6-20) 02/10/22 04:50 Creatinine 0.7 mg/dL (0.6-1.2) 02/10/22 04:50 Estimated GFR (MDRD) 115 (>89) 02/10/22 04:50 Glucose 91 mg/dL (70-100) 02/10/22 04:50 Estimat Average Glucose 171 mg/dL (70-100) H 02/07/22 06:05 Hemoglobin A1c % 7.6 % (4.27-6.07) H 02/07/22 06:05 Calcium 8.5 mg/dL (8.5-10.3) 02/10/22 04:50 Total Bilirubin 1.0 mg/dL (0.2-1.0) 02/07/22 06:05 AST 16 IU/L (10-42) 02/07/22 06:05 ALT 14 IU/L (10-60) 02/07/22 06:05 Alkaline Phosphatase 66 IU/L (42-121) 02/07/22 06:05 Total Protein 6.0 g/dL (6.7-8.2) L 02/07/22 06:05 Albumin 3.5 g/dL (3.2-5.5) 02/07/22 06:05 Globulin 2.5 g/dL (2.1-4.2) 02/07/22 06:05 Albumin/Globulin Ratio 1.4 (1.0-2.2) 02/07/22 06:05 Triglycerides 65 mg/dL (-149) 02/07/22 06:05 Cholesterol 164 mg/dL (-199) 02/07/22 06:05 LDL Cholesterol, Calc 90 mg/dL (-129) 02/07/22 06:05 VLDL Cholesterol 13 mg/dL 02/07/22 06:05 HDL Cholesterol 61 mg/dL (60-) 02/07/22 06:05 LDL/HDL Ratio 1.5 (<3.6) 02/07/22 06:05 Cholesterol/HDL Ratio 2.7 (<5.0) 02/07/22 06:05 TSH 3.57 uIU/mL (0.34-5.60) 02/07/22 06:05 Nasal Adenovirus (PCR) NOT DETECTED 02/06/22 21:11 Nasal B. parapertussis DNA (PCR) NOT DETECTED 02/06/22 21:11 Nasal Coronavir 229E PCR NOT DETECTED 02/06/22 21:11 Nasal Coronavir HKU1 PCR NOT DETECTED 02/06/22 21:11 Nasal Coronavir NL63 PCR NOT DETECTED 02/06/22 21:11 Nasal Coronavir OC43 PCR NOT DETECTED 02/06/22 21:11 Nasal Enterovir/Rhinovir PCR NOT DETECTED 02/06/22 21:11 Nasal Influenza B PCR NOT DETECTED 02/06/22 21:11 Nasal Influenza A PCR NOT DETECTED 02/06/22 21:11 Nasal Parainfluen 1 PCR NOT DETECTED 02/06/22 21:11 Nasal Parainfluen 2 PCR NOT DETECTED 02/06/22 21:11 Nasal Parainfluen 3 PCR NOT DETECTED 02/06/22 21:11 Nasal Parainfluen 4 PCR NOT DETECTED 02/06/22 21:11 Nasal RSV (PCR) NOT DETECTED 02/06/22 21:11 Nasal B.pertussis DNA PCR NOT DETECTED 02/06/22 21:11 Nasal C.pneumoniae (PCR) NOT DETECTED 02/06/22 21:11 Jabari Human Metapneumo PCR NOT DETECTED 02/06/22 21:11 Nasal M.pneumoniae (PCR) NOT DETECTED 02/06/22 21:11 Nasal SARS-CoV-2 (PCR) NOT DETECTED 02/06/22 21:11
[2022-02-10] MEDS: INSULIN LISPRO 300 UNIT/3 ML PEN SUBQ SCH (08:55)
[2022-02-10] MEDS: SENNA 8.6 MG TABLET PO SCH (08:55)
[2022-02-10] MEDS: polyethylene glycoL 3350 17 GM PACKET PO SCH (08:56)
[2022-02-10] MEDS: ASPIRIN EC 81 MG TABLET PO SCH ×2 (08:56→20:55)
[2022-02-10] MEDS: INSULIN NPH HUMAN 300 UNIT/3 ML VIAL SUBQ SCH (09:20)
[2022-02-10] MEDS: DOCUSATE SODIUM 100 MG CAPSULE PO PRN (09:33)
[2022-02-10] MEDS ORDERED: INSULIN REGULAR HUMAN 100 UNIT/1 ML 10 ML MDV SUBQ PRN (10:28)
[2022-02-10] MEDS: HYDROcod/ACETAM 5/325 MG TABLET PO PRN ×3 (10:47→23:50)
[2022-02-10] MEDS ORDERED: INSULIN REGULAR HUMAN 300 UNIT/3 ML VIAL SUBQ PRN (12:25)
[2022-02-10] MEDS: INSULIN REGULAR HUMAN 300 UNIT/3 ML VIAL SUBQ PRN (20:57)
[2022-02-10] MEDS ORDERED: INSULIN NPH HUMAN 100 UNIT/1 ML 10 ML MDV SUBQ SCH ×2 (21:00)
[2022-02-10] MEDS: ZOLPIDEM 5 MG TABLET PO PRN (21:52)
[2022-02-11] MEDS: oxyCODONE 5 MG TABLET PO PRN ×4 (04:50→18:31)
[2022-02-11 06:11] LABS: CALCIUM 8.8 mg/dL (8.5-10.3); CREATININE 0.7 mg/dL (0.6-1.2); POTASSIUM 4.1 mmol/L (3.5-5.0)
[2022-02-11] MEDS: MORPHINE 2 MG/ML CARPUJECT IVP PRN (06:11)
[2022-02-11] MEDS: INSULIN REGULAR HUMAN 300 UNIT/3 ML VIAL SUBQ PRN ×3 (07:51→17:02)
--- NOTE | 2022-02-11 08:36 | PROVIDER PROGRESS NOTE ---
Assessment/Plan - Problem List (1) Intertrochanteric fracture of left hip Qualifiers: Encounter type: subsequent encounter Fracture type: closed Fracture alignment: displaced Assessment/Plan: He fractured his hip falling off a ladder. He underwent successful hip surgery on 02/07/22. (2) S/P hip surgery (Z98.890) Assessment/Plan: Today is POD #4. Continue iv narcotic meds for pain prn Working with PT and OT, and a SNF is recommended and he is agreeable. He is requesting that his service dog Chari who is a 5-year-old Rottweiler be allowed to visit. Further recommendations and plan as per Ortho and PT/OT. (3) Brittle Diabetes Assessment/Plan: He has documented glucoses that quickly go from 300 down to 70. Yesterday morning he again had a glu level of 70 then after OJ it was 235, and his bedtime Humulin was decreased from 12U to 7U. This morning the a.m. glu was 90. Will again decrease the bedtime Humulin now, down to 4U. Continue with sliding scale coverage only for breakfast lunch and dinner, no short-acting Insulin coverage at bedtime. Will change fast acting Lispro to Humulin R, at his request. Continue glucose checks and sliding scale coverage. Continue hypoglycemia protocol. Human Resource Manager's assistance appreciated. Because of these needed changes in his DM management, he is not yet medically ready for [facility] today (4) IDDM (insulin dependent diabetes mellitus) Assessment/Plan: His A1c level came back at 7.6 indicating fairly good control at home. His Insulin and fingerstick checks and ss coverage have been ordered as well as a carb-controlled diet. (5) Hx CABG Assessment/Plan: As per Hx. He is getting baby aspirin twice daily now because of the hip surgery, for DVT prophylaxis for 6 weeks and after that he should be on aspirin lifelong because of his CAD. (6) Abnormal EKG Assessment/Plan: Inferior Q waves were seen on his EKG, therefore I asked about his cardiac Hx and whether there was an MS. He said that "they thought he had an MS, but after the CABG said no" An Echo was done pre-op, and no inferior wall motion abnormality was seen. This suggests that he probably did have an MS given the abn EKG, but that the inferior wall was reperfused when blood flow was restored with a CABG. He has no sx of chest pain since the CABG. Therefore the likelihood that he still has well perfused myocardium is good. - Current Meds Current Meds: Current Medications Generic Name Dose Route Start Last Admin Trade Name Freq PRN Reason Stop Dose Admin Acetaminophen 650 mg 02/06/22 21:33 02/10/22 14:52 Acetaminophen 325 Mg Tablet PO 650 mg Q4HR PRN Administration Pain 1 to 4, or Fever Hydrocodone Bitart/Acetaminophen 1 tab 02/06/22 21:33 02/10/22 23:50 Hydrocod/Acetam 5/325 Mg Tablet PO 1 tab Q4HR PRN Administration Pain 5 to 7 Aspirin 81 mg 02/07/22 21:00 02/10/22 20:55 Aspirin Ec 81 Mg Tablet PO 81 mg BID JENNIFER Administration Docusate Sodium 100 mg 02/07/22 16:15 02/10/22 09:33 Docusate Sodium 100 Mg Capsule PO 100 mg BID PRN Administration Constipation Insulin Human NPH 12 unit 02/10/22 09:00 02/10/22 09:20 Insulin Nph Human 300 Unit/3 Ml Vial SUBQ 12 unit DAILY JENNIFER Administration Insulin Human Regular 1 - 5 unit 02/10/22 12:57 02/11/22 07:51 Insulin Regular Human 300 Unit/3 Ml Vial SUBQ 1 unit TID@0800,1200,1700 PRN Administration HIGH BS Protocol Morphine Sulfate 2 mg 02/06/22 21:33 02/11/22 06:11 Morphine 2 Mg/Ml Carpuject IVP 2 mg Q2HR PRN Administration Pain 8 to 10 Oxycodone HCl 5 mg 02/06/22 21:33 02/11/22 04:50 Oxycodone 5 Mg Tablet PO 5 mg Q4HR PRN Administration Pain 5 to 7 Polyethylene Glycol 17 gm 02/09/22 11:00 02/10/22 08:56 Polyethylene Glycol 3350 17 Gm Packet PO 17 gm DAILY JENNIFER Administration Senna 8.6 - 17.2 mg 02/10/22 09:00 02/10/22 08:55 Senna 8.6 Mg Tablet PO 8.6 mg DAILY JENNIFER Administration Sodium Chloride 10 ml 02/07/22 01:00 02/10/22 23:51 Sodium Chloride Flush 0.9% 10 Ml Syringe IVP 10 ml 0100,0900,1700 JENNIFER Administration Zolpidem Tartrate 5 mg 02/06/22 21:33 02/10/22 21:52 Zolpidem 5 Mg Tablet PO 5 mg QPM PRN Administration Insomnia - Lab Result Fish Bone Diagrams: 02/10/22 04:50 02/11/22 05:16 - Additional Planning My Orders: My Active Orders 02/10/22 09:00 Insulin NPH Human [Humulin N] 12 unit SUBQ DAILY 02/10/22 12:57 Insulin Regular Human [Humulin R] 1 - 5 unit SUBQ TID@0800,1200,1700 PRN 02/11/22 21:00 Insulin NPH Human [HumuLIN N] 4 unit SUBQ QPM Subjective - Subjective Patient Reports: Resting Comfortably (after Oxycodone dose) Nursing Reports: Other (Is progressing with PT and OT) Objective Vital Signs: Vital Signs - 24 hr 02/10/22 02/10/22 02/11/22 17:10 23:45 07:25 Temperature 36.4 C L 36.5 C 36.6 C Heart Rate [ 76 79 74 Brachial] Respiratory 20 18 18 Rate Blood Pressure 130/67 132/66 H 124/54 L [Right Brachial artery] O2 Saturation 97 94 95 Oxygen O2 Source Room air I&O (Last 24 Hrs): Intake and Output Totals x24h 02/09/22 02/10/22 02/11/22 23:59 23:59 23:59 Intake Total 1854.16 1750 Output Total 1475 2710 600 Balance 379.16 -960 -600 General: Other (Currently asleep, normally alert and awake) Neck: Supple, No JVD Neuro: Non Focal Cardiovascular: Regular rate, No murmurs Respiratory: No respiratory distress, Breath sounds nml Abdomen: Normal bowel sounds, Soft Extremities: No clubbing, No edema - Results Results: Laboratory Results WBC 6.0 x10^3/uL (4.8-10.8) 02/10/22 04:50 RBC 3.74 10^6/uL (4.70-6.10) L 02/10/22 04:50 Hgb 11.9 g/dL (14.0-18.0) L 02/10/22 04:50 Hct 35.1 % (42.0-52.0) L 02/10/22 04:50 MCV 93.9 fL (80.0-94.0) 02/10/22 04:50 MCH 31.8 pg (27.0-31.0) H 02/10/22 04:50 MCHC 33.9 g/dL (32.0-36.0) 02/10/22 04:50 RDW 13.3 % (12.0-15.0) 02/10/22 04:50 Plt Count 224 10^3/uL (130-450) 02/10/22 04:50 MPV 9.4 fL (7.4-11.4) 02/10/22 04:50 Neut # (Auto) 3.4 10^3/uL (1.5-6.6) 02/10/22 04:50 Lymph # (Auto) 1.9 10^3/uL (1.5-3.5) 02/10/22 04:50 [place] # (Auto) 0.5 10^3/uL (0.0-1.0) 02/10/22 04:50 Eos # (Auto) 0.2 10^3/uL (0.0-0.7) 02/10/22 04:50 Baso # (Auto) 0.1 10^3/uL (0.0-0.1) 02/10/22 04:50 Absolute Nucleated RBC 0.00 x10^3/uL 02/10/22 04:50 Nucleated RBC % 0.0 /100WBC 02/10/22 04:50 PT 11.0 secs (9.9-12.6) 02/07/22 08:10 INR 1.0 (0.8-1.2) 02/07/22 08:10 Sodium 134 mmol/L (135-145) L 02/11/22 05:16 Potassium 4.1 mmol/L (3.5-5.0) 02/11/22 05:16 Chloride 96 mmol/L (101-111) L 02/11/22 05:16 Carbon Dioxide 30 mmol/L (21-32) 02/11/22 05:16 Anion Gap 8.0 (6-13) 02/11/22 05:16 BUN 11 mg/dL (6-20) 02/11/22 05:16 Creatinine 0.7 mg/dL (0.6-1.2) 02/11/22 05:16 Estimated GFR (MDRD) 115 (>89) 02/11/22 05:16 Glucose 136 mg/dL (70-100) H 02/11/22 05:16 Estimat Average Glucose 171 mg/dL (70-100) H 02/07/22 06:05 Hemoglobin A1c % 7.6 % (4.27-6.07) H 02/07/22 06:05 Calcium 8.8 mg/dL (8.5-10.3) 02/11/22 05:16 Total Bilirubin 1.0 mg/dL (0.2-1.0) 02/07/22 06:05 AST 16 IU/L (10-42) 02/07/22 06:05 ALT 14 IU/L (10-60) 02/07/22 06:05 Alkaline Phosphatase 66 IU/L (42-121) 02/07/22 06:05 Total Protein 6.0 g/dL (6.7-8.2) L 02/07/22 06:05 Albumin 3.5 g/dL (3.2-5.5) 02/07/22 06:05 Globulin 2.5 g/dL (2.1-4.2) 02/07/22 06:05 Albumin/Globulin Ratio 1.4 (1.0-2.2) 02/07/22 06:05 Triglycerides 65 mg/dL (-149) 02/07/22 06:05 Cholesterol 164 mg/dL (-199) 02/07/22 06:05 LDL Cholesterol, Calc 90 mg/dL (-129) 02/07/22 06:05 VLDL Cholesterol 13 mg/dL 02/07/22 06:05 HDL Cholesterol 61 mg/dL (60-) 02/07/22 06:05 LDL/HDL Ratio 1.5 (<3.6) 02/07/22 06:05 Cholesterol/HDL Ratio 2.7 (<5.0) 02/07/22 06:05 TSH 3.57 uIU/mL (0.34-5.60) 02/07/22 06:05 Nasal Adenovirus (PCR) NOT DETECTED 02/06/22 21:11 Nasal B. parapertussis DNA (PCR) NOT DETECTED 02/06/22 21:11 Nasal Coronavir 229E PCR NOT DETECTED 02/06/22 21:11 Nasal Coronavir HKU1 PCR NOT DETECTED 02/06/22 21:11 Nasal Coronavir NL63 PCR NOT DETECTED 02/06/22 21:11 Nasal Coronavir OC43 PCR NOT DETECTED 02/06/22 21:11 Nasal Enterovir/Rhinovir PCR NOT DETECTED 02/06/22 21:11 Nasal Influenza B PCR NOT DETECTED 02/06/22 21:11 Nasal Influenza A PCR NOT DETECTED 02/06/22 21:11 Nasal Parainfluen 1 PCR NOT DETECTED 02/06/22 21:11 Nasal Parainfluen 2 PCR NOT DETECTED 02/06/22 21:11 Nasal Parainfluen 3 PCR NOT DETECTED 02/06/22 21:11 Nasal Parainfluen 4 PCR NOT DETECTED 02/06/22 21:11 Nasal RSV (PCR) NOT DETECTED 02/06/22 21:11 Nasal B.pertussis DNA PCR NOT DETECTED 02/06/22 21:11 Nasal C.pneumoniae (PCR) NOT DETECTED 02/06/22 21:11 Jabari Human Metapneumo PCR NOT DETECTED 02/06/22 21:11 Nasal M.pneumoniae (PCR) NOT DETECTED 02/06/22 21:11 Nasal SARS-CoV-2 (PCR) NOT DETECTED 02/06/22 21:11
[2022-02-11] MEDS: INSULIN NPH HUMAN 300 UNIT/3 ML VIAL SUBQ SCH ×2 (09:28→20:39)
[2022-02-11] MEDS: ACETAMINOPHEN 325 MG TABLET PO PRN ×3 (09:29→18:31)
[2022-02-11] MEDS: SENNA 8.6 MG TABLET PO SCH (09:29)
[2022-02-11] MEDS: ASPIRIN EC 81 MG TABLET PO SCH ×2 (09:29→20:45)
[2022-02-11] MEDS: DOCUSATE SODIUM 100 MG CAPSULE PO PRN (09:29)
[2022-02-11] MEDS: polyethylene glycoL 3350 17 GM PACKET PO SCH (09:30)
[2022-02-11] MEDS: SODIUM CHLORIDE FLUSH 0.9% 10 ML SYRINGE IVP SCH ×2 (09:31→15:57)
[2022-02-11] MEDS: ZOLPIDEM 5 MG TABLET PO PRN (20:57)
[2022-02-12] MEDS: SODIUM CHLORIDE FLUSH 0.9% 10 ML SYRINGE IVP SCH ×3 (04:19→16:46)
[2022-02-12 04:47] LABS: CALCIUM 8.8 mg/dL (8.5-10.3); CREATININE 0.8 mg/dL (0.6-1.2); POTASSIUM 4.7 mmol/L (3.5-5.0)
--- NOTE | 2022-02-12 07:46 | Discharge Plan ---
Discharge Plan for SNF / [facility] - Discharge Plan And Transition Orders Problem Reviewed?: Yes Disposition: 03 SNF DC/Xfer Condition: Good Allergies and Adverse Reactions: Allergies Allergy/AdvReac Type Severity Reaction Status Date / Time No Known Drug Allergies Allergy Verified 02/06/22 19:29 Health Concerns: Unfortunately, while at home, you fell off your ladder and broke your hip. You were consulted on by orthopedics and they repaired your hip. You will now need physical therapy to improve your mobility and strength to use that leg. You are being transferred to a shelter facility for that.While here we manage her diabetes and your A1c level came back at 7.6%. Goal is always to be less than 7%. You do have brittle diabetes and can quickly go from a glucose of 300 down to 70. Plan of Treatment: 1. Physical therapy is recommending discharge to a shelter facility for short stay to improve independence with mobility, improve your use of a front wheel walker, improve her gait pattern with weightbearing as tolerated and to increase her ambulation distance for safety in the home. 2. Please see your primary care provider in follow-up once you leave the shelter facility. I 3. Orthopedic surgery will need to see you in the next 2 weeks to look at your leg wound and to repeat a film to make sure everything is healing appropriately. - SNF / [facility] Transition Orders Medicare Certification Statement: I certify that Post Hospital shelter care is medically necessary on a continuing basis for any of the conditions for which she/he is receiving care during hospitalization. Notify PCP of admission and forward orders to primary provider for signature. Other Notification Orders: Call PCP immediately if patient develops dyspnea, chest pain/tightness or edema. Additional Bowel Program Orders: If no BM after 2 days, nurse may give M.O.M. 30ml PO PRN and/or ducolax Supp 1 [place] and/or MOLLY 250mg P.O., and/or senna 1-2 tabs PO. On day 3 nurse may give repeat above order until residents constipation is resolved. Medication Orders: PLEASE REFER TO THE DISCHARGE MEDICATION LIST.
[2022-02-12] MEDS: INSULIN REGULAR HUMAN 300 UNIT/3 ML VIAL SUBQ SCH ×3 (08:03→16:45)
[2022-02-12] MEDS ORDERED: SODIUM CHLORIDE 0.9% 500 ML IV ONE (08:07)
[2022-02-12] MEDS: HYDROcod/ACETAM 5/325 MG TABLET PO PRN (08:08)
[2022-02-12] MEDS: CHOLECALCIFEROL 25 MCG TABLET PO SCH (08:08)
[2022-02-12] MEDS: SENNA 8.6 MG TABLET PO SCH (08:08)
[2022-02-12] MEDS: CALCIUM CARBONATE CHEW 500 MG TABLET PO SCH ×2 (08:08→20:35)
[2022-02-12] MEDS: ASPIRIN EC 81 MG TABLET PO SCH ×2 (08:08→20:35)
[2022-02-12] MEDS: polyethylene glycoL 3350 17 GM PACKET PO SCH (08:14)
[2022-02-12] MEDS: MORPHINE 2 MG/ML CARPUJECT IVP PRN (08:15)
[2022-02-12] MEDS: INSULIN NPH HUMAN 300 UNIT/3 ML VIAL SUBQ SCH ×2 (09:20→20:35)
[2022-02-12] MEDS: SODIUM CHLORIDE 0.9% 1,000 ML IV SCH ×2 (10:02→18:46)
--- NOTE | 2022-02-12 10:39 | PROVIDER PROGRESS NOTE ---
Subjective - Prog Note Date Prog Note Date: 02/12/22 Prog Note Time: 10:36 - Subjective Subjective: He is really worried about his dog. His brother and brother's are codependent alcoholics. He does not think they take really good care of his dog and she is his "everything". His next concern is pain at night. It is very uncomfortable and throughout the night. He is not so much worried about during the day when he is to work with rehab and his mind has to be clear. But he would like to get a good night sleep. He denies chest pain, palpitations, shortness of breath. He had a long talk with siphon operator today where he described giving himself hypoglycemia so that his dog could be trained in how to recognize hypoglycemia. But he said he stopped doing that 2 years ago. She has offered him various strategies to control his glucose and he says that he has had diabetes for over 40 years and "I know what I am doing". He was not receptive to Lantus, continuous glucose monitoring, or insulin pump. Current Medications - Current Medications Current Medications: Active Medications Acetaminophen (Acetaminophen 325 Mg Tablet) 650 mg PO Q4HR PRN PRN Reason: Pain 1 to 4, or Fever Last Admin: 02/11/22 18:31 Dose: 650 mg Hydrocodone Bitart/Acetaminophen (Hydrocod/Acetam 5/325 Mg Tablet) 1 tab PO Q4HR PRN PRN Reason: Pain 5 to 7 Last Admin: 02/12/22 08:08 Dose: 1 tab Aspirin (Aspirin Ec 81 Mg Tablet) 81 mg PO BID [facility] Last Admin: 02/12/22 08:08 Dose: 81 mg Calcium Carbonate/Glycine (Calcium Carbonate Chew 500 Mg Tablet) 500 mg PO BID [facility] Last Admin: 02/12/22 08:08 Dose: 500 mg Cholecalciferol (Cholecalciferol 25 Mcg Tablet) 50 mcg PO DAILY [facility] Last Admin: 02/12/22 08:08 Dose: 50 mcg Docusate Sodium (Docusate Sodium 100 Mg Capsule) 100 mg PO BID PRN PRN Reason: Constipation Last Admin: 02/11/22 09:29 Dose: 100 mg Sodium Chloride (Normal Saline 0.9%) 1,000 mls @ 125 mls/hr IV .Q8H [facility] Last Admin: 02/12/22 10:02 Dose: 125 mls/hr Insulin Human NPH (Insulin Nph Human 300 Unit/3 Ml Vial) 12 unit SUBQ DAILY [facility] Last Admin: 02/12/22 09:20 Dose: 12 unit Insulin Human NPH (Insulin Nph Human 300 Unit/3 Ml Vial) 4 unit SUBQ QPM [facility] Last Admin: 02/11/22 20:39 Dose: 4 unit Insulin Human Regular (Insulin Regular Human 300 Unit/3 Ml Vial) 1 - 5 unit SUBQ TID@0800,1200,1700 [facility]; Protocol Last Admin: 02/12/22 08:03 Dose: 4 unit Morphine Sulfate (Morphine 2 Mg/Ml Carpuject) 2 mg IVP Q2HR PRN PRN Reason: Pain 8 to 10 Last Admin: 02/12/22 08:15 Dose: 2 mg Ondansetron HCl (Ondansetron 4 Mg/2 Ml Vial) 4 mg IVP Q6HR PRN PRN Reason: Nausea / Vomiting Oxycodone HCl (Oxycodone 5 Mg Tablet) 5 mg PO Q4HR PRN PRN Reason: Pain 5 to 7 Last Admin: 02/11/22 18:31 Dose: 5 mg Polyethylene Glycol (Polyethylene Glycol 3350 17 Gm Packet) 17 gm PO DAILY [facility] Last Admin: 02/12/22 08:14 Dose: 17 gm Senna (Senna 8.6 Mg Tablet) 8.6 - 17.2 mg PO DAILY [facility] Last Admin: 02/12/22 08:08 Dose: 8.6 mg Sodium Chloride (Sodium Chloride Flush 0.9% 10 Ml Syringe) 10 ml IVP PRN PRN PRN Reason: NEEDED PER PROVIDER ORDERS Last Admin: 02/12/22 09:19 Dose: 10 ml Sodium Chloride (Sodium Chloride Flush 0.9% 10 Ml Syringe) 10 ml IVP 0100,0900,1700 [facility] Last Admin: 02/12/22 08:30 Dose: 10 ml Zolpidem Tartrate (Zolpidem 5 Mg Tablet) 5 mg PO QPM PRN PRN Reason: Insomnia Last Admin: 02/11/22 20:57 Dose: 5 mg Aspirin [[place] Aspirin] 81 mg PO DAILY 02/06/22 Insulin NPH Human [HumuLIN N] 15 unit SUBQ BID 02/06/22 Insulin Regular Human [Humulin R] 0 unit SUBQ ACHS 02/06/22 Metoprolol Succinate [Toprol Xl] 25 mg PO DAILY 02/07/22 Rosuvastatin Calcium [Crestor] 20 mg PO HS 02/07/22 Objective - Vital Signs/Intake & Output Reviewed Vital Signs: Yes Vital Signs: Vital Signs x48h Temp Pulse Resp BP Pulse Ox 02/12/22 08:00 36.6 C 84 16 121/54 L 96 Intake & Output: Intake & Output 02/09/22 02/10/22 02/11/22 02/12/22 23:59 23:59 23:59 23:59 Intake Total 1854.16 1750 2000 860 Output Total 1475 2710 1400 250 Balance 379.16 -960 600 610 - Objective General Appearance: positive: Alert, Other (His brow is furrowed with worry about his dog. He says that he is in some pain right now as he sits at the side of the bed.) Eyes Bilateral: positive: PERRL, EOMI ENT: positive: Pharynx nml Neck: positive: No JVD. negative: Stiff neck Respiratory: positive: No respiratory distress. negative: Wheezes, Rales, Rhonchi Cardiovascular: positive: Regular rate & rhythm. negative: Gallop/S4, Friction rub Abdomen: positive: Non-tender, No organomegaly, Nml bowel sounds, No distention Skin: positive: Warm, Dry Extremities: positive: Full ROM, No pedal edema Neurologic/Psychiatric: positive: Oriented x3, CN's nml (2-12), Motor nml, Other (Lack of mobility due to the hip surgery. Left leg is painful from hip down the back of the thigh to the knee. But no neurological deficit.) - Lab Results Fish Bones: 02/10/22 04:50 02/12/22 04:30 Other Labs: Lab Results x24hrs 02/12/22 Range/Units 04:30 Sodium 130 L (135-145) mmol/L Potassium 4.7 (3.5-5.0) mmol/L Chloride 95 L (101-111) mmol/L Carbon Dioxide 29 (21-32) mmol/L Anion Gap 6.0 (6-13) BUN 11 (6-20) mg/dL Creatinine 0.8 (0.6-1.2) mg/dL Estimated GFR (MDRD) 98 (>89) Glucose 329 H (70-100) mg/dL Calcium 8.8 (8.5-10.3) mg/dL ABX Reporting Has patient been on IV antibiotics over the past 48 hours?: No Assessment/Plan - Problem List (1) Intertrochanteric fracture of left hip Impression: He fractured his hip falling off a ladder. He underwent successful hip surgery on 02/07/22. Today is POD #5. Continue iv and po narcotic meds for pain prn But I will give a standing dose for nighttime of motrin and [place] before he goes to sleep with to see if he gets him through the night Working with PT and OT, and a SNF is recommended and he is agreeable. He is requesting that his service dog Chari who is a 5-year-old Rottweiler be allowed to visit.The hospital is allowing that and it makes him feel better. Physical therapy is recommending discharge to assisted facility for a few more days of rehab. However he is Medicaid/coordinated care. So far, a assisted facility has not accepted him. I will await social work and discharge planning recommendations. Physical therapy and Occupational Therapy will continue to work with the patient. (3) Brittle Diabetes Assessment/Plan: He has documented glucoses that quickly go from 300 down to 70. 02/10 morning he again had a glu level of 70 then after OJ it was 235, and his bedtime Humulin was decreased from 12U to 7U. 02/11 a.m. glu was 90 then 153, 149, 250, 152, 272. Bedtime Humulin N now down to 4U. Am Humulin N is still 12. Continue with sliding scale coverage only for breakfast lunch and dinner, no short-acting Insulin coverage at bedtime. Fast acting Lispro changed to Humulin R, at his request. Continue glucose checks and sliding scale coverage. This morning he is 325. Continue hypoglycemia protocol. Director Group Sales's assistance appreciated. (4) IDDM (insulin dependent diabetes mellitus) Assessment/Plan: His A1c level came back at 7.6 indicating fairly good control at home. His Insulin and fingerstick checks and ss coverage have been ordered as well as a carb-controlled diet. (5) Hx CABG Assessment/Plan: As per Hx. He is getting baby aspirin twice daily now because of the hip surgery, for DVT prophylaxis for 6 weeks and after that he should be on aspirin lifelong because of his CAD. (6) Abnormal EKG Assessment/Plan: Inferior Q waves were seen on his EKG, therefore I asked about his cardiac Hx and whether there was an TN. He said that "they thought he had an TN, but after the CABG said no" An Echo was done pre-op, and no inferior wall motion abnormality was seen. This suggests that he probably did have an TN given the abn EKG, but that the inferior wall was reperfused when blood flow was restored with a CABG. He has no sx of chest pain since the CABG. Therefore the likelihood that he still has well perfused myocardium is good.
[2022-02-12] MEDS ORDERED: INSULIN REGULAR HUMAN 300 UNIT/3 ML VIAL SUBQ ONE (12:12)
[2022-02-12] MEDS: oxyCODONE 5 MG TABLET PO PRN ×2 (12:30→16:44)
[2022-02-12] MEDS: ACETAMINOPHEN 325 MG TABLET PO PRN ×2 (12:30→16:44)
[2022-02-12] MEDS ORDERED: MAGNESIUM HYDROXIDE 2,400 MG/30 ML UDC PO ONE (15:59)
[2022-02-12] MEDS: HYDROcod/ACETAM 5/325 MG TABLET PO SCH (20:35)
[2022-02-12] MEDS: IBUPROFEN 400 MG TABLET PO SCH (20:35)
[2022-02-13] MEDS: SODIUM CHLORIDE FLUSH 0.9% 10 ML SYRINGE IVP SCH ×3 (00:20→16:56)
[2022-02-13] MEDS: ACETAMINOPHEN 325 MG TABLET PO PRN ×2 (00:30→05:37)
[2022-02-13] MEDS: oxyCODONE 5 MG TABLET PO PRN ×2 (00:30→05:37)
[2022-02-13] MEDS: SODIUM CHLORIDE 0.9% 1,000 ML IV SCH (02:32)
[2022-02-13] MEDS: INSULIN REGULAR HUMAN 300 UNIT/3 ML VIAL SUBQ SCH ×3 (09:09→16:56)
[2022-02-13] MEDS: INSULIN NPH HUMAN 300 UNIT/3 ML VIAL SUBQ SCH (09:10)
[2022-02-13] MEDS: SENNA 8.6 MG TABLET PO SCH (09:13)
[2022-02-13] MEDS: ASPIRIN EC 81 MG TABLET PO SCH ×2 (09:13→21:15)
[2022-02-13] MEDS: CALCIUM CARBONATE CHEW 500 MG TABLET PO SCH ×2 (09:13→21:14)
[2022-02-13] MEDS: CHOLECALCIFEROL 25 MCG TABLET PO SCH (09:13)
[2022-02-13] MEDS: polyethylene glycoL 3350 17 GM PACKET PO SCH (09:14)
--- NOTE | 2022-02-13 12:32 | PROVIDER PROGRESS NOTE ---
Subjective - Prog Note Date Prog Note Date: 02/13/22 Prog Note Time: 12:28 - Subjective Subjective: From a pain perspective and mobility perspective today. Still needs help and feels like he cannot go home to live in his brother so far. His brother is also an alcoholic so he cannot rely on him. He continues to express severe concern about his service dog. He would not put it past his brother to sell his dog while he is in the hospital. Patient denies any chest pain, palpitations, shortness of breath. Current Medications - Current Medications Current Medications: Active Medications Acetaminophen (Acetaminophen 325 Mg Tablet) 650 mg PO Q4HR PRN PRN Reason: Pain 1 to 4, or Fever Last Admin: 02/13/22 05:37 Dose: 650 mg Hydrocodone Bitart/Acetaminophen (Hydrocod/Acetam 5/325 Mg Tablet) 1 tab PO Q4HR PRN PRN Reason: Pain 5 to 7 Last Admin: 02/12/22 08:08 Dose: 1 tab Hydrocodone Bitart/Acetaminophen (Hydrocod/Acetam 5/325 Mg Tablet) 1 tab PO QPM [facility] Last Admin: 02/12/22 20:35 Dose: 1 tab Aspirin (Aspirin Ec 81 Mg Tablet) 81 mg PO BID [facility] Last Admin: 02/13/22 09:13 Dose: 81 mg Calcium Carbonate/Glycine (Calcium Carbonate Chew 500 Mg Tablet) 500 mg PO BID [facility] Last Admin: 02/13/22 09:13 Dose: 500 mg Cholecalciferol (Cholecalciferol 25 Mcg Tablet) 50 mcg PO DAILY [facility] Last Admin: 02/13/22 09:13 Dose: 50 mcg Docusate Sodium (Docusate Sodium 100 Mg Capsule) 100 mg PO BID PRN PRN Reason: Constipation Last Admin: 02/11/22 09:29 Dose: 100 mg Ibuprofen (Ibuprofen 400 Mg Tablet) 400 mg PO QPM [facility] Last Admin: 02/12/22 20:35 Dose: 400 mg Insulin Human NPH (Insulin Nph Human 300 Unit/3 Ml Vial) 12 unit SUBQ DAILY [facility] Last Admin: 02/13/22 09:10 Dose: 12 unit Insulin Human NPH (Insulin Nph Human 300 Unit/3 Ml Vial) 6 unit SUBQ QPM [facility] Insulin Human Regular (Insulin Regular Human 300 Unit/3 Ml Vial) 1 - 5 unit SUBQ TID@0800,1200,1700 [facility]; Protocol Last Admin: 02/13/22 12:11 Dose: 3 unit Ondansetron HCl (Ondansetron 4 Mg/2 Ml Vial) 4 mg IVP Q6HR PRN PRN Reason: Nausea / Vomiting Oxycodone HCl (Oxycodone 5 Mg Tablet) 5 mg PO Q4HR PRN PRN Reason: Pain 5 to 7 Last Admin: 02/13/22 05:37 Dose: 5 mg Polyethylene Glycol (Polyethylene Glycol 3350 17 Gm Packet) 17 gm PO DAILY [facility] Last Admin: 02/13/22 09:14 Dose: 17 gm Senna (Senna 8.6 Mg Tablet) 8.6 - 17.2 mg PO DAILY [facility] Last Admin: 02/13/22 09:13 Dose: 8.6 mg Sodium Chloride (Sodium Chloride Flush 0.9% 10 Ml Syringe) 10 ml IVP PRN PRN PRN Reason: NEEDED PER PROVIDER ORDERS Last Admin: 02/12/22 09:19 Dose: 10 ml Sodium Chloride (Sodium Chloride Flush 0.9% 10 Ml Syringe) 10 ml IVP 0100,0900,1700 [facility] Last Admin: 02/13/22 09:14 Dose: Not Given Zolpidem Tartrate (Zolpidem 5 Mg Tablet) 5 mg PO QPM PRN PRN Reason: Insomnia Last Admin: 02/11/22 20:57 Dose: 5 mg Aspirin [[place] Aspirin] 81 mg PO DAILY 02/06/22 Insulin NPH Human [HumuLIN N] 15 unit SUBQ BID 02/06/22 Insulin Regular Human [Humulin R] 0 unit SUBQ ACHS 02/06/22 Metoprolol Succinate [Toprol Xl] 25 mg PO DAILY 02/07/22 Rosuvastatin Calcium [Crestor] 20 mg PO HS 02/07/22 Objective - Vital Signs/Intake & Output Reviewed Vital Signs: Yes Vital Signs: Vital Signs x48h Temp Pulse Resp BP Pulse Ox 02/13/22 08:00 36.4 C L 73 18 143/62 H 95 Intake & Output: Intake & Output 02/10/22 02/11/22 02/12/22 02/13/22 23:59 23:59 23:59 23:59 Intake Total 1750 2000 3260 2314.166 Output Total 2710 1400 250 600 Balance -916 343 3640 1714.166 - Objective General Appearance: positive: No acute distress, Alert, Other (Thin white male 72.57 kg. Able to ambulate in the room but is grimacing with pain) Eyes Bilateral: positive: PERRL ENT: positive: Pharynx nml Neck: positive: No JVD Respiratory: positive: No respiratory distress. negative: Wheezes, Rales, Rhonchi Cardiovascular: positive: Regular rate & rhythm. negative: Gallop/S4, Friction rub Abdomen: positive: Non-tender, No organomegaly, Nml bowel sounds, No distention Skin: positive: Warm, Dry Extremities: positive: No pedal edema Neurologic/Psychiatric: positive: Oriented x3, CN's nml (2-12), Motor nml (excep for limping off of affected leg.), Other (per PT yesterday: Today's session consisted of stair training. Pt progressing, myrna to negotiated 2 steps with CGA and bilateral handrails. Required max cuing for motor sequencing and will need continued practice with this during stay. Pt continues to demonstrate a preference for ambulating NWB on) - Lab Results Fish Bones: 02/10/22 04:50 02/12/22 04:30 Assessment/Plan - Problem List (1) Intertrochanteric fracture of left hip Impression: He fractured his hip falling off a ladder. He underwent successful hip surgery on 02/07/22. Today is POD #6 I have stopped IV pain medicines and he is only on p.o. po narcotic meds for pain prn but I will give a standing dose for nighttime of motrin and [place] before he goes to sleep . Last night that seemed to help with pain. His last dose of IV pain meds was yesterday. Working with PT and OT, and a SNF is recommended and he is agreeable. He is requesting that his service dog Chari who is a 5-year-old Rottweiler be allowed to visit. The hospital is allowing that and it makes him feel better. Physical therapy is recommending discharge to snf facility for a few more days of rehab. However he is Medicaid/coordinated care. So far, a snf facility has not accepted him. Coordinated care agrees to Per rate to [facility]. However [facility] is not excepting the rate negotiated. They are continuing to negotiate. Physical therapy and Occupational Therapy will continue to work with the patient. He is avoidable day #2 today (3) Brittle Diabetes Assessment/Plan: He has documented glucoses that quickly go from 300 down to 70. 02/10 morning he again had a glu level of 70 then after OJ it was 235, and his bedtime Humulin was decreased from 12U to 7U. 02/11 a.m. glu was 90 then 153, 149, 250, 152, 272. Bedtime Humulin N now down to 4U. Am Humulin N is still 12. Continue with sliding scale coverage only for breakfast lunch and dinner, no short-acting Insulin coverage at bedtime. Fast acting Lispro changed to Humulin R, at his request. February 12 glucose 325, 402, 425, 101 (this was after 20 units was given for the 425), 168 This morning he is 156 before breakfast, and 258 before lunch I will change to make Humulin N 6 units at bedtime and continue 12 units in am. Continue hypoglycemia protocol. (4) IDDM (insulin dependent diabetes mellitus) Assessment/Plan: His A1c level came back at 7.6 indicating fairly good control at home. His Insulin and fingerstick checks and ss coverage have been ordered as well as a carb-controlled diet. (5) Hx CABG Assessment/Plan: As per Hx. He is getting baby aspirin twice daily now because of the hip surgery, for DVT prophylaxis for 6 weeks and after that he should be on aspirin lifelong because of his CAD. (6) Abnormal EKG Assessment/Plan: Inferior Q waves were seen on his EKG, therefore I asked about his cardiac Hx and whether there was an TX. He said that "they thought he had an TX, but after the CABG said no" An Echo was done pre-op, and no inferior wall motion abnormality was seen. This suggests that he probably did have an TX given the abn EKG, but that the inferior wall was reperfused when blood flow was restored with a CABG. He has no sx of chest pain since the CABG. Therefore the likelihood that he still has well perfused myocardium is good.
[2022-02-13] MEDS: HYDROcod/ACETAM 5/325 MG TABLET PO PRN (15:44)
[2022-02-13] MEDS ORDERED: INSULIN NPH HUMAN 300 UNIT/3 ML VIAL SUBQ SCH (21:00)
[2022-02-13] MEDS: HYDROcod/ACETAM 5/325 MG TABLET PO SCH (21:15)
[2022-02-13] MEDS: IBUPROFEN 400 MG TABLET PO SCH (21:15)
[2022-02-14] MEDS: SODIUM CHLORIDE FLUSH 0.9% 10 ML SYRINGE IVP SCH ×2 (02:16→09:09)
[2022-02-14] MEDS: HYDROcod/ACETAM 5/325 MG TABLET PO PRN (02:16)
[2022-02-14 07:37] VITALS: BP 137/64
[2022-02-14 08:21] LABS: BASOPHILS # (AUTO) 0.1 10^3/uL (0.0-0.1); BASOPHILS % (AUTO) 1.7 %; EOSINOPHILS # (AUTO) 0.2 10^3/uL (0.0-0.7); EOSINOPHILS % (AUTO) 3.3 %; HCT - HEMATOCRIT 35.6 % (42.0-52.0); HGB - HEMOGLOBIN 12.2 g/dL (14.0-18.0); LYMPHOCYTES # (AUTO) 1.7 10^3/uL (1.5-3.5); LYMPHOCYTES % (AUTO) 33.7 %; MEAN CORPUSCULAR HEMOGLOBIN 32.1 pg (27.0-31.0); MEAN CORPUSCULAR HGB CONC 34.3 g/dL (32.0-36.0); MEAN CORPUSCULAR VOLUME 93.7 fL (80.0-94.0); MEAN PLATELET VOLUME 9.1 fL (7.4-11.4); MONOCYTES # (AUTO) 0.4 10^3/uL (0.0-1.0); MONOCYTES % (AUTO) 7.8 %; NEUTROPHILS # (AUTO) 2.8 10^3/uL (1.5-6.6); NEUTROPHILS % (AUTO) 53.3 %; PLT - PLATELET COUNT 359 10^3/uL (130-450); RED CELL DISTRIBUTION WIDTH 13.2 % (12.0-15.0); WHITE BLOOD COUNT 5.2 x10^3/uL (4.8-10.8)
[2022-02-14 08:27] LABS: CALCIUM 8.9 mg/dL (8.5-10.3); CREATININE 0.7 mg/dL (0.6-1.2); POTASSIUM 4.3 mmol/L (3.5-5.0)
[2022-02-14] MEDS: INSULIN REGULAR HUMAN 300 UNIT/3 ML VIAL SUBQ SCH ×2 (08:54→12:33)
[2022-02-14] MEDS: INSULIN NPH HUMAN 300 UNIT/3 ML VIAL SUBQ SCH (08:54)
[2022-02-14] MEDS: polyethylene glycoL 3350 17 GM PACKET PO SCH ×2 (09:08→09:11)
[2022-02-14] MEDS: CALCIUM CARBONATE CHEW 500 MG TABLET PO SCH (09:08)
[2022-02-14] MEDS: ASPIRIN EC 81 MG TABLET PO SCH (09:08)
[2022-02-14] MEDS: SENNA 8.6 MG TABLET PO SCH (09:08)
[2022-02-14] MEDS: CHOLECALCIFEROL 25 MCG TABLET PO SCH (09:08)
--- NOTE | 2022-02-14 11:03 | Discharge Plan ---
Discharge Plan Problem Reviewed?: Yes Disposition: Home Health Service Condition: Good Prescriptions: HYDROcod/ACETAM 5/325 [[place] 5/325] 1 tab PO Q4HR PRN #30 tab PRN Reason: Pain 5 to 7 Walker [Ultra-Light Rollator] 1 each MC DAILY #1 each Diet: Diabetic Activity Restrictions: Wt Bearing as Tolerated Shower Restrictions: No Driving Restrictions: Yes (yes no driving until cleared by Ortho) Assistance Devices: Walker Health Concerns: Unfortunately, while at home, you fell off your ladder and broke your hip. You were consulted on by orthopedics and they repaired your hip. You needed physical therapy to improve your mobility and strength to use that leg. You were to be transferred to a assisted facility for that. Unfortunately, no local assisted facility would take your type of insurance reimbursement. You have been seen daily by physical therapy here. Our goal was for you to walk 100 feet. You are now at that goal and as such you are able to go home and not need to go to a assisted facility. You will still require physical therapy at home and we are ordering home health physical therapy to see you. While here we manage your diabetes and your A1c level came back at 7.6%. Goal is always to be less than 7%. You do have brittle diabetes and can quickly go from a glucose of 300 down to 70. Plan of Treatment: 1. Physical therapy was recommending discharge to a assisted facility for short stay to improve independence with mobility, improve your use of a front wheel walker, improve your gait pattern with weightbearing as tolerated and to increase your ambulation distance for safety in the home. But there was a delay in getting authorization from your insurance company. They did not want to pay the amount the assisted facility asked for. You are very concerned about your dog. You have a service animal who is being taken care of by your brother. And you really wanted to get to your dog. Since you are walking more than 100 feet, we felt you are safe to go home now and did not necessarily have to go to snf for rehab. We gave you the option of continuing to be transition to a snf for rehab for a few more days or going home today since you are at goal with ambulation. You opted to go home. I will order home health for visits to your domicile for continued PT. 2. Please see your primary care provider in follow-up once you leave the assisted facility. I 3. Orthopedic surgery will need to see you in the next 2 weeks to look at your leg wound and to repeat a film to make sure everything is healing appropriately. Care Goals: Right now your main goal is to get through this current episode of care with a broken hip. You need to rehab to be independent again, and to be able to work again. You do not know for you to be living with your brother are going to go back to [place] and need to make those arrangements. Assessment: There is a lot of contentious nests right now between you and your brother. A lot of family issues you have to resolve. Otherwise you are an alert, oriented person who can still make their own decisions. No Smoking: If you smoke, Please STOP! Call for help. Follow-up with: Betty Bob MD [Primary Care Provider] -
--- NOTE | 2022-02-14 15:03 | DISCHARGE SUMMARY ---
"Discharge Summary Admit Date: 02/06/22 Discharge Date: 02/14/22 Discharging Provider: Betty Bob MD Primary Care Provider: patient has no PCP Code Status: Attempt Resuscitation Condition at Discharge: Good Discharge Disposition: Home Health Service - DIAGNOSES Discharge Diagnoses with Status of Each Condition: 1. Intertrochanteric fracture of left hip 2. Fall off of ladder 3. Type 1 diabetes mellitus, without complications, uncontrolled with hyperglycemia 4. Tobacco abuse 5. Coronary artery disease, status post bypass graft [facility] 2020 6. Abnormal EKG with inferior Q waves - HPI History of Present Illness: This is a 61-year-old gentleman who recently moved from [place] to [facility] about 2 months ago. He came here because of financial stress of living in [place], and he came to live with his brother and work for him. Patient enjoys sailing and scuba diving.For the last 6 years she has lived on a boat in [place] and [place]. 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 He was up on a ladder Trying to repair an RV that he just bought. The RV is parked at his brother's house. He was about 5 to 6 feet when he fell trying to pull down rubber taping that was used to secure the edge of ezequiel. He landed on his left hip. He had pain about the left hip and was very difficult to bear weight on left leg. He denies chest pain, shortness of breath, dizziness, syncope or loss of consciousness associated with the fall. He has been normally active, no limitations to walking and no previous problems with his left hip. He does have a history of medical comorbidities. These include chronic cigarette smoking, insulin-dependent diabetes mellitus, coronary artery disease with previous myocardial infarction and coronary artery bypass grafting approximately 1 year ago in [place], [place]. He denies chest pain or shortness of breath associated with the fall and none now. His pain is controlled clysed to the left hip and upper thigh. As long he does not move his left leg in bed, he is relatively comfortable. - Past Medical History Cardiovascular: positive: High cholesterol, [place] Respiratory: positive: None Neuro: positive: None Endocrine/Autoimmune: positive: Type 1 diabetes GI: positive: None : positive: None HEENT: positive: Other Psych: positive: None Musculoskeletal: positive: None Derm: positive: None MRSA Hx?: No Other Past Medical History: Broken nose - Past Surgical History General: positive: Appendectomy Cardiovascular: positive: Other HEENT: positive: Rhinoplasty - CONSULTS | PROCEDURES Consultations: Hospitalist medicine, Dr. Starr check Procedures: Open reduction internal fixation basilar femoral neck fracture left hip using [employer] 11.5 mm diameter, short locked, InterTAN nail on February 07 Hip and pelvis x-ray with mildly displaced and angulated intertrochanteric fracture of the proximal left femur Chest x-ray without acute cardiopulmonary disease, but he does have COPD findings C arm fluoroscopy after surgical repair shows fixation of the right femoral head, neck, shaft. Hardware intact. (The patient had surgery on left hip, and has left hip scar, so I believe radiology missed dictated right versus left) - HOSPITAL COURSE Hospital Course: The patient was initially admitted by orthopedic surgery and they transferred the care to the general medicine service.Preoperative evaluation regarding his heart disease was taking into account. Patient underwent an uncomplicated InterTAN nailing. His mobility was impacted by surgery and the pain after day rgery. He received physical therapy and they recommended that he be transferred to detention facility for continued rehab to improve his mobility and decrease pain. He is from [place], and it was difficult to obtain insurance authorization for transfer to detention facility. We did find a location but the insurance company and the location were unable to meet a mutually beneficial brenner range for his care. He was in the hospital 9 days. He had to reach his goal of greater than 100 feet ambulation with a walker. Pain was controlled. The main problem during his stay was control of his brittle type 1 diabetes. He would vacillate between 300, get insulin, and dropped to 70. He was very resistant to any intervention from nutrition counseling. He did not want to change to Lantus. He did not want continuous glucose monitoring. He did not want an insulin pump. There is some social situations and stress going on between he and his brother. He had moved here from [place] to work for his brother and live with him. Is not working out because of brothers alcohol abuse. And now that he is fallen, his [id number] is very leery about him being in the house. Nevertheless, he was discharged to his brother's home. He will be staying there for the next few weeks and gained enough strength to most likely move out.The patient has a service animal that he is completely devoted to. This entire time he was very worried about his dog and this is one of the prompting factors that wanted him to leave the hospital to go to his dog. I have explained to the patient that he needs to establish himself with a primary care [place] He needs to see orthopedic surgery in 2 weeks. Be compliant with insulin and diet. Keep the wound clean and dry. He can take a shower he can take a bath but he must clean the wound as soon as possible and not soak it in a hot tub or bathtub. He cannot drive until orthopedic surgery clears him. He can be weightbearing as tolerated. In order to help him with rehab, have ordered home health for RN to check his wound, and PT. At discharge temperature is 36.6. Heart rate 69. Blood pressure 137/64. Respirations 18. 97% on room air. He is 5 feet 11 inches tall, 72.57 kg. He is still smoking and when I sent in the discharge instructions with him on the bench outside the hospital he is already smoking. Neck has shotty adenopathy. Lungs are clear to auscultation and percussion. PMI is normally placed. He has a regular rate and rhythm. Abdomen is soft and nontender. Last bowel movement was yesterday. The left hip is painful but able to weight-bear on it. He does have a circumducted gait to avoid weightbearing on it. But he is able to ambulate greater than 100 feet. Greater than 30 minutes was spent coordinating discharge. - ALLERGIES Allergies/Adverse Reactions: Allergies Allergy/AdvReac Type Severity Reaction Status Date / Time No Known Drug Allergies Allergy Verified 02/06/22 19:29 - MEDICATIONS Home Medications: Ambulatory Orders Medication Instructions Recorded Confirmed Aspirin [[place] Aspirin] 81 mg PO DAILY 02/06/22 02/06/22 Insulin NPH Human [HumuLIN N] 15 unit SUBQ BID 02/06/22 02/06/22 Insulin Regular Human [Humulin R] 0 unit SUBQ ACHS 02/06/22 02/06/22 Metoprolol Succinate [Toprol Xl] 25 mg PO DAILY 02/07/22 02/07/22 Rosuvastatin Calcium [Crestor] 20 mg PO HS 02/07/22 02/07/22 Acetaminophen [Tylenol] 650 mg PO Q4HR PRN tab 02/14/22 Calcium Carbonate [Tums (Calcium 500 mg PO BID tab 02/14/22 Carbonate 500mg)] Cholecalciferol [Vitamin D3] 50 mcg PO DAILY tab 02/14/22 HYDROcod/ACETAM 5/325 [[place] 5/325] 1 tab PO Q4HR PRN #30 tab 02/14/22 Walker [Ultra-Light Rollator] 1 each MC DAILY #1 each 02/14/22 - LABS Result Diagrams: 02/14/22 08:03 02/14/22 08:03"
== END 2022-02-14 15:45 | disposition home health service (06) | DRG 482 ==
LOC: EDUNIT# → ED 19:17 → MS2 21:33
PROVIDERS: ADMIT Internal Medicine; ATTEND Specialist
PROC: 0QS704Z Reposition Left Upper Femur with Internal Fixation Device, Open Approach (ICD-10-PCS; principal; 2022-02-07 14:15)
DX: S72.142A Displaced intertrochanteric fracture of left femur, initial encounter for closed fracture (principal); W11.XXXA Fall on and from ladder, initial encounter; E10.65 Type 1 diabetes mellitus with hyperglycemia; I25.10 Atherosclerotic heart disease of native coronary artery without angina pectoris; F17.210 Nicotine dependence, cigarettes, uncomplicated; I25.2 Old myocardial infarction; E78.00 Pure hypercholesterolemia, unspecified; J44.9 Chronic obstructive pulmonary disease, unspecified; R59.0 Localized enlarged lymph nodes; R94.31 Abnormal electrocardiogram [ECG] [EKG]; Z20.822 Contact with and (suspected) exposure to COVID-19; Z79.4 Long term (current) use of insulin; Z79.82 Long term (current) use of aspirin; Z81.1 Family history of alcohol abuse and dependence; Z95.1 Presence of aortocoronary bypass graft
CPT/HCPCS: 36415; 71045; 73502; 80048; 80053; 80061; 83036; 84443; 85025; 85610; 87633; 93005; 93306; 96374; 97116; 97161; 97165; 97530; 97535; 99284; 99285; A9270; J1170; J1815; J7040; J7120; 83721

== ENCOUNTER 2022-02-22 08:00 | Outpatient (CLI) | payer MEDICAID ==
--- NOTE | 2022-02-22 15:24 | XRAY Report ---
PROCEDURE: Hip w/Pelvis 1V LT INDICATIONS: LEFT FEMUR FRACTURE TECHNIQUE: AP pelvis with lateral view(s) of the left hip(s). COMPARISON: X-ray hips 02/06/2022 FINDINGS: Bones: Interval left femoral fixation. Hardware is intact. There is good anatomic alignment. Pelvic r ing appears intact. No suspicious bony lesions. Soft tissues: The visualized bowel gas pattern is normal. No suspicious soft tissue calcifications. IMPRESSION: Interval fixation of previous intertrochanteric fracture with good anatomic alignment. Reviewed by: Chasity Holley MD on 02/22/2022 3:23 PM PDT Approved by: Chasity Holley MD on 02/22/2022 3:23 PM PDT Station ID: [id number]
== END 2022-02-22 08:01 | disposition home or self-care (01) ==
LOC: DI.S 08:00
PROVIDERS: ATTEND Emergency Medicine
DX: S72.102D Unspecified trochanteric fracture of left femur, subsequent encounter for closed fracture with routine healing (principal)